=== PATIENT | male | born 1940 | race Caucasian/White ===

== ENCOUNTER 2019-09-02 11:00 | Inpatient (IN) | payer OTHER, SELFPAY ==
[2019-09-02] VITALS (8 sets, daily range): BP systolic 111–139; BP diastolic 55–72; PULSE 67–80; RESP 16–20; TEMP 36.6–36.8; O2SAT 94–99; BMI 39.3
--- NOTE | ~2019-09-02 | XR_ITS ---
XR chest 2V DATE: 09/02/2019 11:51 INDICATION: Hiccups for 6 days. Weakness. TECHNIQUE: AP and lateral views COMPARISON: 10/21/2016 PA and lateral chest FINDINGS: Status post sternotomy. Heart size is borderline. Aortic calcification. No hilar or mediast inal enlargement is evident. No pulmonary infiltrate or consolidation, pleural effusion or pulmonary vascular congestion or pneumo thorax is detected. There is distention scoliosis and degenerative spurring of the thoracic spine. Osteoarthritis is note d at the left glenohumeral joint. IMPRESSION: No active cardiopulmonary disease Aortic atherosclerosis Reviewed, dictated and finalized at location A.
--- NOTE | 2019-09-02 11:18 | ECG_ITS ---
Measurements Intervals [place] Rate: 69 P: CO: 0 QRS: 75 QRSD: 154 T: 27 QT: 470 QTc: 505 Interpretive Statements ATRIAL FIBRILLATION RIGHT BUNDLE BRANCH BLOCK BASELINE ARTIFACT- I, II, III, AVR, AVL, AVF, V4-V5 Electronically Signed On 09-02-2019 11:55:25 CDT by Pieter Slater D.O.
[2019-09-02 11:49] LABS: Basophils Absolute Auto 0.1 K/mm3 (0.0-0.1); Basophils Percent Auto 0.6 % (0.2-1.2); Eosinophils Absolute Auto 0.3 K/mm3 (0-0.3); Hematocrit 34.9 % (42.0-52.0); Hemoglobin 12.3 g/dL (14.0-18.0); Immature Granulocyte Absolute 0.12 K/mm3 (0.00-0.031); Lymphocytes Absolute Auto 1.05 K/mm3 (0.9-3.2); Lymphocytes Percent Auto 8.4 % (18.3-44.2); Mean Corpuscular HGB Conc 35.2 g/dl (32-36); Mean Corpuscular Hemoglobin 30.8 pg (26-34); Mean Corpuscular Volume 87.3 fl (80-100); Mean Platelet Volume 11.2 fl (7.4-10.4); Monocytes Absolute Auto 1.5 K/mm3 (0.1-0.6); Monocytes Percent Auto 11.8 % (2.6-8.5); Neutrophils Absolute Auto 9.6 K/mm3 (1.3-6.7); Neutrophils Percent Auto 76.2 % (45.5-73.1); Platelet Count Result 258 k/mm3 (150-375); Red Cell Distribution Width 12.5 % (11.5-14.5); White Blood Count 12.5 K/mm3 (4.5-10.0)
[2019-09-02 12:03] LABS: Blood Urea Nitrogen 32 mg/dL (9-20); Calcium 7.9 mg/dL (8.4-10.2); Carbon Dioxide 26 mmol/L (22-30); Chloride 92 mmol/L (98-107); Estimated CRCL calculation 33 ml/min; Estimated Glomerular Filt Rate 31; Glucose 198 mg/dL (75-110); Potassium 2.7 mmol/L (3.4-5.0); Sodium 128 mmol/L (137-145)
[2019-09-02] MEDS: POTASSIUM CHLORIDE 20 MEQ PACKET (FOR LIQUID) 40 MEQ PO (12:18)
[2019-09-02] MEDS: SODIUM CHLORIDE 0.9% IV 1,000 ML 999 ML IV CONT (12:19)
--- NOTE | 2019-09-02 12:45 | ED.SOB ---
HPI - SOB/Dyspnea General Chief Complaint: Shortness of Breath/Dyspnea Stated Complaint: WEAKNESS,SOB Time Seen by Provider: 09/02/19 11:59 Source: patient and family Mode of arrival: ambulatory Limitations: no limitations History of Present Illness HPI Narrative: This is a 78 year old male that presents to the ER for generalized weakness x 1 week. Reports over the last week has not been able to get around like he usually does. Reports some dyspnea on exertion. Also reports he has been having trouble with hiccups for the last week. Denies fever, chest pain, abdominal pain, nausea, vomiting, dysuria or hematuria. Related Data Home Medications Medication Instructions Recorded Confirmed cholecalciferol (vitamin D3) 50 2,000 unit PO DAILY 02/25/19 mcg (2,000 unit) tablet apixaban [Eliquis] 5 mg PO BID 09/02/19 simvastatin 40 mg PO HS 09/02/19 Allergies Allergy/AdvReac Type Severity Reaction Status Date / Time aspartame Allergy Severe SEIZURE Verified 09/02/19 11:08 Review of Systems Review of Systems: Narrative: CONSTITUTIONAL: Denies fever CARDIOVASCULAR: Denies chest pain, or edema. RESPIRATORY: Reports dyspnea. Denies cough GASTROINTESTINAL: Denies abdominal pain, nausea, vomiting GENITOURINARY: Denies dysuria or hematuria. NEUROLOGIC: Reports weakness. All systems reviewed & are unremarkable except as noted in HPI and below [facility] Social History Social History Smoking status: Former smoker Smoking end date: 04/17/85 Alcohol intake: current Exam Narrative: Exam Narrative: GENERAL: Elderly, obese, and in no acute distress. HEAD: Normocephalic, atraumatic. EYES: EOMI. ENT: Nares clear, no rhinorrhea or epistaxis. Mucous membranes moist. Oropharynx without tonsillar hypertrophy exudate or other lesions. Bilateral TMs pearly rodriguez non-bulging NECK: Supple. No adenopathy or masses. CHEST: Clear to auscultation. No respiratory distress. No wheezes rales or rhonchi HEART: Regular rate and rhythm. No murmur heard. Normal peripheral pulses. ABDOMEN: Soft, nontender, nondistended, normal active bowel sounds. EXTREMITIES: Normal range of motion. No edema. SKIN: Warm, dry, no rash. NEURO: No focal deficits. Alert and oriented x3. PSYCH: Normal mood and affect Course Consultations Consultation #1: Spoke with Dr. Reeves about patient and workup who accepts admission Date: 09/02/19 Time: 14:32 Vital Signs Vital signs: Vital Signs Temperature 98.0 F 09/02/19 11:01 Pulse Rate 80 09/02/19 11:01 Respiratory Rate 20 09/02/19 11:01 Blood Pressure 111/65 09/02/19 11:01 Pulse Oximetry 98 09/02/19 11:01 Temperature 98.0 F 09/02/19 11:01 Pulse Rate 69 09/02/19 11:13 Respiratory Rate 20 09/02/19 11:01 Blood Pressure 111/65 09/02/19 11:01 Pulse Oximetry 98 09/02/19 11:01 MDM - SOB/Dyspnea MDM Narrative Medical decision making narrative: Patient presents the emergency department for generalized weakness x1 week. He is afebrile and nontoxic-appearing. Vitals are stable. CBC with mild leukocytosis to 12.5. Also with mild normocytic anemia with hemoglobin of 12.3. Metabolic panel with hyponatremia and hypokalemia. Patient given a dose of potassium in the ED. Also shows evidence of probable acute kidney injury with creatinine of 2.1 and BUN of 32. Lactic acid is elevated to 2.5. Chest x-ray is without acute findings. Patient given IV fluids in the ED for dehydration. Patient will be admitted for further treatment of electrolyte imbalance and DERRICK. Spoke with hospitalist outpatient work-up accepts admission Lab Data Attestation: I reviewed the patient's lab results. Result diagrams: 09/02/19 11:42 09/02/19 11:42 Labs: Lab Results 09/02/19 09/02/19 09/02/19 Range/Units 11:41 11:41 11:41 WBC (4.5-10.0) K/mm3 RBC (4.6-6.20) M/mm3 Hgb (14.0-18.0) g/dL Hct (42.0-52.0) %
[2019-09-02 13:15] LABS: Lactic Acid Reflex 2.5 mmol/L (0.7-2.1)
[2019-09-02 13:30] LABS: Alanine Aminotransferase 46 U/L (4-50); Albumin Level 3.5 g/dL (3.5-5.1); Alkaline Phosphatase 242 U/L (38-126); Aspartate Amino Transferase 36 U/L (17-59); Bilirubin,Total 3.6 mg/dL (0.2-1.3)
[2019-09-02 13:37] LABS: NT Pro B Type Natriuretic Pept 2390 PG/ML (5-100)
--- NOTE | 2019-09-02 13:41 | PC.NURSE ---
Called lab to add on direct bili and indirect bili.
[2019-09-02 13:56] LABS: Bilirubin Indirect 2.5 mg/dL (0-1.1)
[2019-09-02 14:03] LABS: Thyroid Stimulating Hormone Reflex 0.873 uIU/mL (0.465-4.68)
[2019-09-02 14:54] LABS: Lipase 550 U/L (23-300)
[2019-09-02 14:58] LABS: Add Urine Microscopic? YES; Amorphous Sediment Urine Few; Appearance Urine Clear (Clear); Bacteria Urine Trace /hpf; Bilirubin Urine Negative (Negative); Blood Urine 2+ (Negative); Color Urine Yellow (Yellow); Glucose Urine UA 1+ mg/dL (Negative); Hyaline Casts Urine 20-29 /lpf; Ketones Urine Negative (Negative); Leukocyte Esterase Ur Negative LEU/UL (Negative); Mucus Urine Rare /lpf; Nitrate Urine Negative (Negative); Protein Urine 2+ mg/dL (Negative); RBC Urine 0-2 /hpf (0-2); Specific Grav Ur 1.015 (1.001-1.035); Squamous Epithelial Cell Urine Few /hpf (Few); Urobilinogen Urine Negative mg/dL (<2.0)
[2019-09-02 16:02] LABS: Reflex Lactic Acid Yes or No Add Lactic
--- NOTE | 2019-09-02 16:49 | ADMGEN ---
This patient, Jer Parikh, was admitted to [facility] Surg Room 323-01. Patient/family oriented to hospital policies and general routines including ID bracelet, bed and alarms, visiting hours, pain management, procedures, bathroom and other care routines, personal items, smoking policy, room service/diet, and visiting hours. Valuables list has been completed. Information on how to activate the Rapid Response Team has been discussed. Patient/Family are encouraged to report perceived risks to care and to ask questions if they do not understand what they are told or what they should do.
[2019-09-02 17:29] LABS: Lactic Acid 1.4 mmol/L (0.7-2.1)
[2019-09-02] MEDS: SODIUM CHLORIDE 0.9% IV 1,000 ML 125 ML IV CONT (17:38)
--- NOTE | 2019-09-02 19:15 | PM.IMHP ---
H&P: HPI History of Present Illness Chief complaint: Generalized weakness. Narrative: Mr. Parikh is a 78-year-old male with coronary artery disease status post three-vessel CABG in 2011, hypertension, dyslipidemia, paroxysmal atrial fibrillation, hypothyroidism, and chronic hyponatremia who presented to the emergency department earlier today for evaluation of generalized weakness. For the past 1 weeks time, he has just not been feeling like himself. He has had a poor appetite since an incident last Monday in which he had difficulty swallowing a piece of toast. Later on that day he developed nausea and dry heaves, and eventually had an episode of emesis to consist of digested food. He has not had dysphagia since that time and specifically denies pill dysphagia and trouble swelling breads or meats since then. Unfortunately, he continues to have a poor appetite and tells me he is just not hungry. He denies any further nausea, however. Additionally, he reports having hiccups most of the day for the last 6 days, which is very irritating to him. He believes that he is dehydrated due to poor oral intake, and he has been been feeling weak and a bit lightheaded. He also notes that his urine seems dark, but goes on to say that is not always unusual for him. Occasionally he has a decreased urine stream, but he denies significant symptoms to suggest BPH. He has not noticed a decrease in urine output. As an aside, the patient mentions dyspnea on exertion over the past 4 months time and tells me that his children have been encouraging him to mention that to the doctor. He has not had fever, chills, or sweats. He denies headache. No recent cold or flu symptoms. No cough. He denies orthopnea and edema. He has not had exertional chest pain or pleuritic pain. He denies change in weight. No anosmia or dysgeusia. No no diarrhea, in fact he has not had a bowel movement for 2 days. He denies dysuria. No history of malignancy. He denies jaundice and pruritus. Weight has remained stable. Review of Systems Review of Systems: Narrative: Twelve systems were reviewed with pertinent positives and negatives as per HPI. Except as documented, all other systems were reviewed and are negative. [facility] Past Medical History Medical History (Updated 09/02/19 @ 22:51 by Shelbi Ngo PA-C) Chronic hyponatremia Colon polyps Coronary artery disease With history of RI. Status post three-vessel CABG in 2011. Daily consumption of alcohol Dyslipidemia Essential hypertension Hyperbilirubinemia Hypothyroidism Left carotid artery occlusion Paroxysmal atrial fibrillation Status post cardioversion in October 2016. 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 Surgical History Surgical History (Updated 09/02/19 @ 17:09 by Shelbi Ngo PA-C) History of coronary artery bypass graft x 3 (~2011) History of inguinal hernia repair History of nasal septoplasty History of umbilical hernia repair Family History Family History Father Carcinoma of colon Acute myocardial infarction Late 30s. Mother Cerebrovascular accident Social History Social History (Updated 09/02/19 @ 22:45 by Shelbi Ngo PA-C) Social History: The patient is and lives in his own apartment in [place] with his cat. 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 He is a former smoker, and smoked as many as 3 to 4 packs of cigarettes per day for several years, and thereafter smoked 1 to 2 packs of cigarettes a day for 20+ years before quitting in 1985. He enjoys going to the [employer], typically 6 times per week, in which he typically will drink 3 beers. He has not been to the [employer] for the past month due to [facility] in place orders. He has no history of alcohol withdrawal signs or symptoms. Denies illicit drug use. He designates his brother Jf and his son Diego as his surrogate
[2019-09-02 22:13] LABS: Blood Urea Nitrogen 30 mg/dL (9-20); Calcium 7.7 mg/dL (8.4-10.2); Carbon Dioxide 27 mmol/L (22-30); Chloride 94 mmol/L (98-107); Estimated CRCL calculation 40 ml/min; Estimated Glomerular Filt Rate 39; Glucose 188 mg/dL (75-110); Potassium 2.9 mmol/L (3.4-5.0); Sodium 128 mmol/L (137-145)
[2019-09-02] MEDS: APIXABAN 5 MG TABLET PO (23:31)
[2019-09-02] MEDS: SIMVASTATIN 20 MG TABLET 40 MG PO (23:31)
[2019-09-02] MEDS: METOPROLOL TARTRATE 50 MG TAB 100 MG PO (23:31)
[2019-09-02 23:32] LABS: Creatine Kinase 118 U/L (55-170); Magnesium 1.9 mg/dL (1.6-2.3)
[2019-09-03 00:23] LABS: Thyroid Stimulating Hormone Reflex 0.742 uIU/mL (0.465-4.68)
[2019-09-03] MEDS: SODIUM CHLORIDE 0.9% IV 1,000 ML 125 ML IV CONT ×3 (02:02→17:33)
[2019-09-03] MEDS: LEVOTHYROXINE SODIUM 112 MCG TABLET PO (05:40)
[2019-09-03 06:00] VITALS: BP 110/48; PULSE 71; RESP 16; TEMP 36.7; O2SAT 96
[2019-09-03 06:26] LABS: INR 1.6; Prothrombin Time 18.9 Seconds (11.1-14.7)
[2019-09-03 06:27] LABS: Basophils Absolute Auto 0.1 K/mm3 (0.0-0.1); Basophils Percent Auto 0.5 % (0.2-1.2); Eosinophils Absolute Auto 0.3 K/mm3 (0-0.3); Eosinophils Percent Auto 2.2 % (0-4.4); Hematocrit 34.6 % (42.0-52.0); Hemoglobin 12.1 g/dL (14.0-18.0); Immature Granulocyte Percent A 0.8 % (0-0.5); Lymphocytes Absolute Auto 1.06 K/mm3 (0.9-3.2); Lymphocytes Percent Auto 8.8 % (18.3-44.2); Mean Corpuscular Hemoglobin 30.6 pg (26-34); Mean Corpuscular Volume 87.6 fl (80-100); Mean Platelet Volume 11.2 fl (7.4-10.4); Monocytes Absolute Auto 1.2 K/mm3 (0.1-0.6); Neutrophils Absolute Auto 9.4 K/mm3 (1.3-6.7); Neutrophils Percent Auto 77.7 % (45.5-73.1); Partial Thromboplastin Time 42.5 SECONDS (22.3-36.8); Platelet Count Result 253 k/mm3 (150-375); Red Blood Count 3.95 M/mm3 (4.6-6.20); Red Cell Distribution Width 12.3 % (11.5-14.5); White Blood Count 12.1 K/mm3 (4.5-10.0)
[2019-09-03 06:33] LABS: Alanine Aminotransferase 37 U/L (4-50); Albumin Level 3.2 g/dL (3.5-5.1); Alkaline Phosphatase 198 U/L (38-126); Aspartate Amino Transferase 32 U/L (17-59); Bilirubin,Total 2.7 mg/dL (0.2-1.3); Blood Urea Nitrogen 25 mg/dL (9-20); Calcium 7.6 mg/dL (8.4-10.2); Carbon Dioxide 25 mmol/L (22-30); Chloride 98 mmol/L (98-107); Estimated CRCL calculation 45 ml/min; Estimated Glomerular Filt Rate 45; Glucose 186 mg/dL (75-110); Lipase 560 U/L (23-300); Magnesium 1.8 mg/dL (1.6-2.3); Phosphorus 2.2 mg/dL (2.5-4.5); Potassium 3.4 mmol/L (3.4-5.0); Sodium 129 mmol/L (137-145)
[2019-09-03] MEDS: POTASSIUM CHLORIDE 20 MEQ TABLET 40 MEQ PO (08:18)
[2019-09-03 08:20] VITALS: PULSE 72
[2019-09-03] MEDS: METOPROLOL TARTRATE 50 MG TAB 100 MG PO ×2 (08:20→17:34)
[2019-09-03] MEDS: APIXABAN 5 MG TABLET PO ×2 (08:20→17:34)
[2019-09-03] MEDS: MUPIROCIN 2% OINT 22 GM TUBE 1 APPLIC TOPICAL ×2 (08:22→17:34)
[2019-09-03 08:28] LABS: Sodium Urine Random 112 meq/L
[2019-09-03] MEDS: PERFLUTREN LIPID MICROSPHERES 1.5 ML VIAL DILUTED TO 10 ML TOTAL VOLUME IV PUSH (10:24)
[2019-09-03] MEDS: CHOLECALCIFEROL 1,000 UNIT TABLET 2000 UNITS PO (12:24)
--- NOTE | 2019-09-03 13:09 | PM.IMPN ---
Progress Note: A&P Assessment and Plan (1) Acute kidney injury: Code(s): N17.9 - Acute kidney failure, unspecified Status: Acute Assessment and Plan: Likely due to dehydration given poor oral intake recently. He is also on losartan-hydrochlorothiazide, which will be held for now. Cr improved to 1.50 today Continue IVF rehydration at 100 mL/hr for now Monitor closely Resume losartan-HCTZ when appropriate (2) Acute hypokalemia: Code(s): E87.6 - Hypokalemia Status: Acute Assessment and Plan: K 3.4 today, improved, but still borderline-low. Potassium and magnesium will be replaced and monitored. As above, hydrochlorothiazide on hold. (3) Chronic hyponatremia: Code(s): E87.1 - Hypo-osmolality and hyponatremia Status: Acute Assessment and Plan: On review of previous labs, he has had longstanding hyponatremia. Na 129 today; stable. May be related to his diet; states he has not had alcohol for almost a month as the [employer] has been closed. FENa 1.7% suggesting intrinsic such as ATN. Improvement with fluids and avoiding nephrotoxic agents Will continue IV fluid rehydration and monitor sodium closely. (4) Hyperbilirubinemia: Code(s): E80.6 - Other disorders of bilirubin metabolism Status: Acute Assessment and Plan: This is been documented in the past, and is mostly indirect bilirubin. Likely Gilbert, however his alkaline phosphatase and lipase are a bit elevated as well. Given poor appetite as well, if no improvement, will consider abdominal imaging Will continue to hydrate to see if we can improve his creatinine clearance. (5) Paroxysmal atrial fibrillation: Code(s): I48.0 - Paroxysmal atrial fibrillation Status: Acute Assessment and Plan: Patient is in a sinus rhythm at time of evaluation. Echo noted a. fib Continue metoprolol and apixaban. (6) Hypothyroidism: Code(s): E03.9 - Hypothyroidism, unspecified Status: Acute Assessment and Plan: TSH WNL Continue levothyroxine (7) Elevated lactic acid level: Code(s): R79.89 - Other specified abnormal findings of blood chemistry Status: Acute Assessment and Plan: Probably due to lab draw technique, but perhaps hypovolemia as well. He gives no history to suggest underlying infection, other than possible UTI with dysuria and sepsis is unlikely. Lactic acid level is normal on repeat lab draw. Consider repeat UA if dysuria continues and leukocytosis does not improve (8) Dyspnea on exertion: Code(s): R06.00 - Dyspnea, unspecified Status: Acute Assessment and Plan: Echo showed moderate aortic stenosis, although possible underestimation as aortic valve not well visualized; likely etiology of TO and murmur. This is been occurring over the past 4 months time as well Explained to the patient that he will need to follow up with his established Chief Of Production at [facility] after discharge for further management Subjective Date/time seen: 09/03/19 13:09 Interval history: Patient is a 78 yo M with history of chronic hyponatremia, CAD, HTN, and hyperbilirubinemia who is here for DERRICK, acute hypokalemia, and generalized weakness. Patient states he overall feels better today. His appetite has improved. He had a large BM this morning; non-bloody, non-melenic. He occasionally has some burning with his urination. He confirms TO for the past 4 months. He continues to have hiccups, but does not he thought they may have improved overnight, but hav
[2019-09-03 14:00] VITALS: BP 111/49; PULSE 70; RESP 18; TEMP 36.4; O2SAT 99
[2019-09-03 17:34] VITALS: PULSE 68
[2019-09-03] MEDS: SIMVASTATIN 20 MG TABLET 40 MG PO (20:00)
[2019-09-03 22:00] VITALS: BP 129/56; PULSE 68; RESP 20; TEMP 36.4; O2SAT 100
--- NOTE | 2019-09-03 22:52 | ECHO_ITS ---
Patient Info Name: Jer Parikh Age: 78 years : 1940 Gender: Male Ht: 67 in Wt: 251 lbs BSA: 2.37 m2 HR: 70 bpm BP: 115 / 60 mmHg Heart Rhythm: Atrial Fibrillation Technical Quality: Fair Exam Date: 09/03/2019 9:27 AM Exam Location: [facility] Card Pulmonary Patient Status: Inpatient Admit Date: 09/02/2019 Staff Ordering Physician: Shelbi Ngo PA-C Blower Insulator: Luis Carlos Bernard RDCS Attending Provider: Peter Babcock PA-C Referring Physician: Huber GIBBONS; Exam Type: CA echo dop color flow w con Study Info Indications R06.00 - Dyspnea, unspecified Complete two-dimensional, color flow and Doppler transthoracic echocardiogram is performed with contrast to opacify the left ventrical and to improve the deliniation of the left ventrical endocarial boarders. Contrast/Agitated Saline Contrast/Ag. Saline: Definity Amount: 1.00 ml Administered By: Ochoa James RN Existing IV Access: Yes History/Risk Factors Dyspnea on exertion; CAD s/p 3vCABG '12, HTN, Afib. Summary 1. Left ventricular chamber dimension is normal. 2. Definity contrast administered improved wall motion interpretation. 3. Left ventricular systolic function is normal, estimated at 60-65%. 4. The left ventricular diastolic function is abnormal. 5. E/e' 10 is mildly elevated. 6. Patient is in atrial fibrillation. 7. Left atrial chamber dimension is severely enlarged. 8. The aortic valve is not well visualized. 9. There is severe aortic valve sclerosis. 10. There is mild to moderate aortic valve regurgitation. 11. There is moderate aortic valve stenosis based on a peak velocity of 303.65 cm/s, mean gradient of 17 mmHg, and aortic valve area of 1.23 cm2. However, this could be an underestimation of valve severity. 12. The mitral valve has mildly calcified annulus. 13. There is mild mitral valve regurgitation. 14. There is mild to moderate tricuspid valve regurgitation. 15. Mild pulmonary hypertension, estimated pulmonary arterial systolic pressure is 48 mmHg. Left Ventricle Patient is in atrial fibrillation. E/e' 10 is mildly elevated. Definity contrast administered improved wall motion interpretation. Left ventricular chamber dimension is normal. Left ventricular systolic function is normal, estimated at 60-65%. The left ventricular diastolic function is abnormal. Right Ventricle Right ventricular chamber dimension is not well visualized. Left Atria Left atrial chamber dimension is severely enlarged. Right Atria Right atrial chamber dimension is not well visualized. Aortic Valve There is moderate aortic valve stenosis based on a peak velocity of 303.65 cm/s, mean gradient of 17 mmHg, and aortic valve area of 1.23 cm2. However, this could be an underestimation of valve severity. Cannot determine number of aortic valve leaflets. The aortic valve is not well visualized. There is severe aortic valve sclerosis. There is mild to moderate aortic valve regurgitation. Mitral Valve The mitral valve has mildly calcified annulus. There is no mitral valve stenosis. There is mild mitral valve regurgitation. Tricuspid Valve There is mild to moderate tricuspid valve regurgitation. Mild pulmonary hypertension, estimated pulmonary arterial systolic pressure is 48 mmHg. Pericardium/Pleural There is no pericardial effusion. Aorta The aortic root size at the sinus of Valsalva is normal. Left Ventricular Out
[2019-09-04] MEDS: SODIUM CHLORIDE 0.9% IV 1,000 ML 100 ML IV CONT (03:17)
[2019-09-04] MEDS: LEVOTHYROXINE SODIUM 112 MCG TABLET PO (05:07)
[2019-09-04 06:00] VITALS: BP 135/57; PULSE 72; RESP 20; TEMP 36.4; O2SAT 98
[2019-09-04 06:07] LABS: Basophils Absolute Auto 0.1 K/mm3 (0.0-0.1); Basophils Percent Auto 0.6 % (0.2-1.2); Eosinophils Absolute Auto 0.5 K/mm3 (0-0.3); Eosinophils Percent Auto 6.3 % (0-4.4); Hematocrit 33.2 % (42.0-52.0); Hemoglobin 11.4 g/dL (14.0-18.0); Immature Granulocyte Absolute 0.07 K/mm3 (0.00-0.031); Immature Granulocyte Percent A 0.8 % (0-0.5); Lymphocytes Percent Auto 14.2 % (18.3-44.2); Mean Corpuscular HGB Conc 34.3 g/dl (32-36); Mean Corpuscular Hemoglobin 30.4 pg (26-34); Mean Corpuscular Volume 88.5 fl (80-100); Monocytes Percent Auto 11.3 % (2.6-8.5); Neutrophils Absolute Auto 5.7 K/mm3 (1.3-6.7); Neutrophils Percent Auto 66.8 % (45.5-73.1); Platelet Count Result 270 k/mm3 (150-375); Red Blood Count 3.75 M/mm3 (4.6-6.20); Red Cell Distribution Width 12.3 % (11.5-14.5); White Blood Count 8.5 K/mm3 (4.5-10.0)
[2019-09-04 06:25] LABS: Alanine Aminotransferase 29 U/L (4-50); Albumin Level 3.1 g/dL (3.5-5.1); Alkaline Phosphatase 139 U/L (38-126); Aspartate Amino Transferase 42 U/L (17-59); Bilirubin,Total 2.3 mg/dL (0.2-1.3); Blood Urea Nitrogen 19 mg/dL (9-20); Carbon Dioxide 27 mmol/L (22-30); Chloride 97 mmol/L (98-107); Estimated CRCL calculation 58 ml/min; Estimated Glomerular Filt Rate 59; Glucose 152 mg/dL (75-110); Magnesium 1.7 mg/dL (1.6-2.3); Potassium 4.1 mmol/L (3.4-5.0); Sodium 128 mmol/L (137-145)
[2019-09-04 08:11] VITALS: BP 142/50; PULSE 71; RESP 18; TEMP 36.4; O2SAT 99
[2019-09-04] MEDS: APIXABAN 5 MG TABLET PO ×2 (08:15→16:28)
[2019-09-04 08:16] VITALS: PULSE 71
[2019-09-04] MEDS: METOPROLOL TARTRATE 50 MG TAB 100 MG PO ×2 (08:16→16:29)
[2019-09-04] MEDS: MUPIROCIN 2% OINT 22 GM TUBE 1 APPLIC TOPICAL ×2 (08:16→16:29)
[2019-09-04] MEDS: CHOLECALCIFEROL 1,000 UNIT TABLET 2000 UNITS PO (12:11)
--- NOTE | 2019-09-04 12:20 | PM.DS ---
DS: Admitting Diagnosis Admitting Diagnosis Admitting Diagnosis: Acute kidney failure, unspecified DS: Discharge Diagnosis Discharge Diagnosis (1) Acute kidney injury: Code(s): N17.9 - Acute kidney failure, unspecified Status: Acute Assessment and Plan: Likely due to dehydration given poor oral intake recently. He is also on losartan-hydrochlorothiazide, which will be held for now. Cr improved to 1.20 today. His appetite is improved and has been increasing his PO intake; tolerating his self-induced FLD well. Wishes to advance his diet as tolerated at home IVF during stay Resume losartan-HCTZ likely in 1-2 days after discharge Repeat CMP on 09/08 (2) Acute hypokalemia: Code(s): E87.6 - Hypokalemia Status: Acute Assessment and Plan: K 4.1 today, improved, but still borderline-low. CMP on 09/08 As above, hydrochlorothiazide on hold and will likely resume in 1-2 days (3) Chronic hyponatremia: Code(s): E87.1 - Hypo-osmolality and hyponatremia Status: Acute Assessment and Plan: On review of previous labs, he has had longstanding hyponatremia. Na 128 today; stable. May be related to his diet; states he has not had alcohol for almost a month as the [employer] has been closed. FENa 1.7% suggesting intrinsic such as ATN. Improvement with fluids and avoiding nephrotoxic agents IV fluid rehydration during stay CMP on 09/08 (4) Hyperbilirubinemia: Code(s): E80.6 - Other disorders of bilirubin metabolism Status: Acute Assessment and Plan: This is been documented in the past, and is mostly indirect bilirubin. Likely Gilbert, however his alkaline phosphatase and lipase are a bit elevated as well. Bili decreased to 2.3 today. Alk phos also improving to 139 CMP on 09/08 F/u with PCP; discussed with patient to discuss with PCP if further imaging as outpatient is warranted after CMP next week (5) Paroxysmal atrial fibrillation: Code(s): I48.0 - Paroxysmal atrial fibrillation Status: Acute Assessment and Plan: Patient is in a sinus rhythm at time of evaluation. Echo noted a. fib Continue metoprolol and apixaban. (6) Hypothyroidism: Code(s): E03.9 - Hypothyroidism, unspecified Status: Acute Assessment and Plan: TSH WNL Continue levothyroxine (7) Elevated lactic acid level: Code(s): R79.89 - Other specified abnormal findings of blood chemistry Status: Acute Assessment and Plan: Probably due to lab draw technique, but perhaps hypovolemia as well. He gives no history to suggest underlying infection, other than possible UTI with dysuria and sepsis is unlikely. UC negative. Lactic acid level is normal on repeat lab draw. F/u PCP (8) Dyspnea on exertion: Code(s): R06.00 - Dyspnea, unspecified Status: Acute Assessment and Plan: Echo showed moderate aortic stenosis, although possible underestimation as aortic valve not well visualized; likely etiology of TO and murmur. 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 No N/V, abdominal pain; having BMs Will trial patient on daily protonix Recommended follow up with PCP in 1-2 weeks if further imaging is warranted. (10) Aortic stenosis:
[2019-09-04 14:00] VITALS: BP 140/50; PULSE 68; RESP 18; TEMP 37.1; O2SAT 99
[2019-09-04 16:29] VITALS: PULSE 90
[2019-09-05 06:02] LABS: Osmolality, Urine 510 mOsm/kg (50-1200)
== END 2019-09-04 17:50 | disposition home or self-care (01) | DRG 683 ==
LOC: ANHED 14:39 → ANH3MEDSUR 15:11
PROVIDERS: Physician Assistant; Admitting Provider Internal Medicine; Emergency Provider Emergency Medicine; Visit Provider Family Medicine
DX: N17.9 Acute kidney failure, unspecified (principal); E87.1 Hypo-osmolality and hyponatremia; E87.6 Hypokalemia; I25.10 Atherosclerotic heart disease of native coronary artery without angina pectoris; I48.0 Paroxysmal atrial fibrillation; E03.9 Hypothyroidism, unspecified; Z87.891 Personal history of nicotine dependence; I10 Essential (primary) hypertension; I35.0 Nonrheumatic aortic (valve) stenosis; R06.6 Hiccough; Z95.1 Presence of aortocoronary bypass graft
CPT/HCPCS: 36415; 71046; 80048; 80053; 80076; 81001; 82248; 82533; 82550; 82570; 83605; 83690; 83735; 83880; 83930; 83935; 84100; 84300; 84443; 85025; 85610; 85730; 87086; 93005; 96360; 96361; 97161; 97165; 99285; A9270; C8929; G0378; J3480; J7030; Q9957

== ENCOUNTER 2019-09-24 10:19 | Outpatient (CLI) | payer OTHER, SELFPAY ==
--- NOTE | 2019-09-26 13:41 | WPDPFTINT ---
PFT Interpretation PFT Interpretation: This PFT met all criteria for ATS standards and reproducibility FEV/FVC 70% of predicted FEV1 98% of predicted FVC 91% of predicted TLC 99% of predicted RV 47% RV/TLC 39% DLCO 43% when adjusted for alveolar volume but not adjusted for hemoglobin Flow volume loops showed some expiratory coving Impression: Mild airflow obstruction with moderately reduced diffusion capacity that is out of proportion to the amount of air flow obstruction present. This may be due to extensive emphysema, concomittant anemia, ILD or pulmonary hypertension. Clinical correlation is advised.
--- NOTE | 2019-09-30 12:02 | WPDPFTINT ---
PFT Interpretation PFT Interpretation: DOS: 09/24/2019 REQUESTING: Olimpia Lawrence NP REASON FOR TESTING: Dyspnea PULMONARY FUNCTION TESTS Resutls are reproducible. Spirometry: FEV1 98%, FVC 91% and FEV1% 70%, all normal. No bronchodilator was given. Lung volumes: TLC 99%, RV 90%, normal. Increase in airway resistance 191%. Diffusion: DLCO moderately reduced at 43% predicted. Flow volume loop: Normal. IMPRESSION: Normal spirometry and lung volumes with a moderate decrease in diffusion. Isolated decrease in diffusion can be seen in early ILD, chronic thromboembolic disease, collagen vascular disease with pulmonary vascular involvement, anemia, smoking adn other conditions. Sharmila Kahn MD
== END 2019-09-24 10:20 | disposition home or self-care (01) ==
PROVIDERS: PCP Family Medicine; Visit Provider Nurse Practitioner Family
DX: R06.00 Dyspnea, unspecified (principal); R94.2 Abnormal results of pulmonary function studies
CPT/HCPCS: 94375; 94726; 94729

== ENCOUNTER 2019-11-28 19:42 | Inpatient (IN) | payer OTHER, SELFPAY ==
--- NOTE | ~2019-11-28 | XR_ITS ---
EXAMINATION: XR chest 1V portable EXAM DATE: 11/28/2019 20:48 INDICATION: Shortness of breath. TECHNIQUE: Portable AP frontal chest x-ray was obtained. Comparison is made to prior examination from 09/02/2019. FINDINGS: Sternotomy wires are present without findings to suggest sternal dehiscence. The lungs are clear. There are no pleural effusions. Cardiac silhouette is prominent but magnified on this AP [place]. There is no pneumothorax suspected. The bones and soft tissues are unremarkable. There i s no significant interval change. IMPRESSION: No acute cardiopulmonary findings. Reviewed, dictated and finalized at location G.
--- NOTE | ~2019-11-28 | US_ITS ---
EXAMINATION: US right upper quadrant DATE: 11/30/2019 07:56 INDICATION: Abnormal liver function tests. TECHNIQUE: Multiple grayscale and Doppler ultrasound images of the abdomen were obtained. COMPARISON: None FINDINGS: The pancreas is obscured. The liver is normal without focal lesion. No liver surface nodula rity. There is normal flow in main portal vein. The gallbladder is distended and contains a gallstone . No gallbladder wall thickening or sonographic Messer sign. The common duct is normal and measures 7 mm. IMPRESSION: 1. Cholelithiasis. Gallbladder distention may be secondary to fasting. Reviewed, dictated and finalized at location A.
--- NOTE | ~2019-11-28 | US_ITS ---
EXAMINATION: US renal BI DATE: 11/29/2019 10:01 INDICATION: Renal failure TECHNIQUE: Multiple ultrasound grayscale images of the kidneys were obtained. COMPARISON: None. FINDINGS: The right kidney measures 10.3 x 5.8 x 6.2 cm. The left kidney measures 10.8 x 5.9 x 6.6 cm. The kidn eys demonstrate normal echogenicity. There is no hydronephrosis in either kidney. No stones identifi ed. The bladder is normal. Instantly noted is a shadowing 2 cm gallstone at the neck of the gallbladd er which measures up to 4.6 similar in diameter but without appreciable wall thickening to suggest ac [place] cholecystitis. IMPRESSION: 1. Normal kidneys without hydronephrosis. 2. Gallstone at the neck of the mildly dilated gallbladder but without wall thickening to more specif ically suggest acute cholecystitis. Correlate for Messer sign and if clinically indicated could consi emili either dedicated right upper quadrant ultrasound and/or HIDA scan for further evaluation. Reviewed, dictated and finalized at location A. IMPRESSION: 1. Normal kidneys without hydronephrosis. 2. Gallstone at the neck of the mildly dilated gallbladder but without wall thi ckening to more specifically suggest acute cholecystitis. Correlate for Messer sign and if clinically indicated could consider either dedicated right upper qu adrant ultrasound and/or HIDA scan for further evaluation.
[2019-11-28 19:49] VITALS: BP 112/58; PULSE 75; RESP 16; TEMP 36.4; O2SAT 97
[2019-11-28 20:12] LABS: Basophils Absolute Auto 0.1 K/mm3 (0.0-0.1); Basophils Percent Auto 1.1 % (0.2-1.2); Eosinophils Absolute Auto 0.3 K/mm3 (0-0.3); Hematocrit 40.4 % (42.0-52.0); Hemoglobin 14.2 g/dL (14.0-18.0); Immature Granulocyte Absolute 0.04 K/mm3 (0.00-0.031); Immature Granulocyte Percent A 0.5 % (0-0.5); Lymphocytes Absolute Auto 1.85 K/mm3 (0.9-3.2); Lymphocytes Percent Auto 21.8 % (18.3-44.2); Mean Corpuscular HGB Conc 35.1 g/dl (32-36); Mean Corpuscular Hemoglobin 30.9 pg (26-34); Mean Corpuscular Volume 87.8 fl (80-100); Mean Platelet Volume 11.1 fl (7.4-10.4); Monocytes Absolute Auto 0.9 K/mm3 (0.1-0.6); Monocytes Percent Auto 10.8 % (2.6-8.5); Neutrophils Absolute Auto 5.2 K/mm3 (1.3-6.7); Neutrophils Percent Auto 61.8 % (45.5-73.1); Platelet Count Result 321 k/mm3 (150-375); Red Cell Distribution Width 12.9 % (11.5-14.5); White Blood Count 8.5 K/mm3 (4.5-10.0)
--- NOTE | 2019-11-28 20:19 | ED.RECABL ---
HPI - Recheck/Abnormal Lab/Rx General Chief Complaint: Recheck/Abnormal Lab/Rx Stated Complaint: abnormal lab work Time Seen by Provider: 11/28/19 20:06 Source: patient and family Mode of arrival: ambulatory Limitations: no limitations History of Present Illness HPI narrative: This patient is a 78 year old male with history of HTH, CAD s/p CABG 2011, DM who presents for evaluation for abnormal labs. Patient had a routine visit in the office 2 days ago with his primary care physician, and labs were drawn after his visit. He states he was called today and he was told his blood sugar was high and he also had abnormal kidney function . He was told he should come to ER. Patient has no acute complaints . He states he was told in September that he was a diabetic but he was only started on metformin yesterday. He denies abdominal pain, nausea, vomiting, chest pain, cough or fever. HE also denies lightheadedness or dizziness. He is being evaluated for chronic sob and he is scheduled to see a pulmonology December 18. He also has an appointment with an change management specialist 01/14. Patient does reports frequent urination and increase thirst. He denies pain or inability to urinate. complaint: abnormal lab Related Data Home Medications Medication Instructions Recorded Confirmed cholecalciferol (vitamin D3) 50 2,000 unit PO DAILY 02/25/19 11/26/19 mcg (2,000 unit) tablet Eliquis 5 mg PO BID 09/02/19 11/26/19 simvastatin 40 mg PO HS 09/02/19 11/26/19 melatonin 3 mg capsule PO 11/26/19 11/26/19 Allergies Allergy/AdvReac Type Severity Reaction Status Date / Time aspartame Allergy Severe SEIZURE Verified 11/28/19 19:51 Review of Systems Review of Systems: All systems reviewed & are unremarkable except as noted in HPI and below Constitutional: Constitutional: Denies chills, Denies fatigue and Denies fever(s) Cardiovascular: Cardiovascular: Denies chest pain Respiratory: Respiratory: Denies cough, Reports dyspnea and Denies wheezing Gastrointestinal: Gastrointestinal: Denies abdominal pain, Denies diarrhea, Denies nausea and Denies vomiting Musculoskeletal: Musculoskeletal: Denies muscle cramps Neurologic: Denies dizziness PMFSH Past Medical History Medical History Chronic hyponatremia Colon polyps COPD (chronic obstructive pulmonary disease) Coronary artery disease With history of [place]. Status post three-vessel CABG in 2011. Daily consumption of alcohol Dyslipidemia Essential hypertension Hyperbilirubinemia Hypothyroidism Insomnia Left carotid artery occlusion Paroxysmal atrial fibrillation Status post cardioversion in October 2016. 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 Type 2 diabetes mellitus without complications Surgical History Surgical History (Updated 09/02/19 @ 17:09 by Shelbi Ngo PA-C) History of coronary artery bypass graft x 3 (~2011) History of inguinal hernia repair History of nasal septoplasty History of umbilical hernia repair Social History Social History (Updated 09/19/19 @ 10:14 by Olimpia Lawrence NP) Social History: The patient is and lives in his own apartment in [place] with his cat. 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 He is a former smoker, and smoked as many as 3 to 4 packs of cigarettes per day for several years, and thereafter smoked 1 to 2 packs of cigarettes a day for 20+ years before quitting in 1985. He enjoys going to the [employer], typically 6 times per week, in which he typically will drink 3 beers. He had not been to the [employer] for the past month due to [facility] in place orders; this week (09/16/19) he has resumed going to the [employer], he typically has lunch there twice a week. He has no history of alcohol withdrawal signs or symptoms. Denies illicit drug use. He designates his brother Jf and his son Diego as his surrogate decision makers and he wis
[2019-11-28 20:24] VITALS: BP 113/68; PULSE 60
[2019-11-28 20:24] LABS: Alanine Aminotransferase 128 U/L (4-50); Albumin Level 4.2 g/dL (3.5-5.1); Alkaline Phosphatase 615 U/L (38-126); Anion Gap 13 mmol/L (8-16); Aspartate Amino Transferase 175 U/L (17-59); Bilirubin,Total 2.1 mg/dL (0.2-1.3); Blood Urea Nitrogen 38 mg/dL (9-20); Calcium 9.6 mg/dL (8.4-10.2); Carbon Dioxide 23 mmol/L (22-30); Chloride 90 mmol/L (98-107); Estimated CRCL calculation 30 ml/min; Estimated Glomerular Filt Rate 29; Glucose 406 mg/dL (75-110); Potassium 4.1 mmol/L (3.4-5.0); Sodium 126 mmol/L (137-145)
[2019-11-28 20:25] VITALS: BP 101/61; PULSE 65
[2019-11-28 20:27] VITALS: BP 115/88; PULSE 159
[2019-11-28] MEDS: SODIUM CHLORIDE 0.9% IV 500 ML 999 ML IV CONT (20:29)
--- NOTE | 2019-11-28 20:37 | ECG_ITS ---
Measurements Intervals Reading Rate: 59 P: TX: 0 QRS: 73 QRSD: 138 T: 131 QT: 449 QTc: 445 Interpretive Statements ATRIAL FIBRILLATION WITH SLOW VENTRICULAR RESPONSE IVCD, FEATURES OF BOTH RBBB, LBBB CANNOT RULE OUT SEPTAL INFARCT, AGE INDETERMINATE MINIMAL Q WAVES- INFERIOR LEADS BASELINE ARTIFACT- I, III, AVR, AVL, AVF, V2-V6 ABNORMAL ECG Electronically Signed On 11-29-2019 7:08:22 CDT by Pieter Slater D.O.
[2019-11-28 20:41] LABS: Add Urine Microscopic? YES; Appearance Urine Cloudy (Clear); Bacteria Urine Trace /hpf; Bilirubin Urine Negative (Negative); Blood Urine 1+ (Negative); Color Urine Yellow (Yellow); Glucose Urine UA 3+ mg/dL (Negative); Ketones Urine Negative (Negative); Leukocyte Esterase Ur Negative LEU/UL (Negative); Mucus Urine Rare /lpf; Nitrate Urine Negative (Negative); Protein Urine 2+ mg/dL (Negative); RBC Urine 0-2 /hpf (0-2); Squamous Epithelial Cell Urine Occasional /hpf (Few); Urobilinogen Urine Negative mg/dL (<2.0); WBC Urine 0-3 /hpf
[2019-11-28 20:47] LABS: Magnesium 1.9 mg/dL (1.6-2.3)
[2019-11-28 21:23] LABS: Ammonia < 9 umol/L (9-30)
[2019-11-28 21:31] LABS: INR 1.3; Prothrombin Time 16.2 Seconds (11.1-14.7)
[2019-11-28 21:32] LABS: Partial Thromboplastin Time 39.8 SECONDS (22.3-36.8)
[2019-11-28 22:45] VITALS: BP 113/68; PULSE 70; RESP 20; O2SAT 98
--- NOTE | 2019-11-28 22:54 | PM.IMHP ---
H&P: HPI History of Present Illness Date/Time: 11/28/19 22:54 Chief complaint: acute on chronic renal failure, hyponatremia, Narrative: Jer Parikh is a 78 year old male with known history of HTN, CAD s/p CABG x 3 in 2011, chronically anticoagulated on Eliquis with recently diagnosed diabetes in September 2019 and was just started on Metformin yesterday and referred to the hospital by his PCP for abnormal labs. The patient was found to have an abnormal renal function and hyperglycemia two days ago and today referred to the hospital for management of same. Tonight the patient has no complaints. Routine labs were obtained in the ER tonight and the patient again was found to have hyperglycemia, abnormal renal and liver function. He admits to drinking three drinks weekly and years ago he was drinking alcohol more frequently. He denies any recent exposure to contrast media. He also denies any NSAID use. He remarks that he feels that he has not had any change in urine output recently. The patient has an appointment with endocrinology in December 2019. Review of Systems Review of Systems: All systems reviewed & are unremarkable except as noted in HPI and below PMFSH Past Medical History Medical History Chronic hyponatremia Colon polyps COPD (chronic obstructive pulmonary disease) Coronary artery disease With history of [place]. Status post three-vessel CABG in 2011. Daily consumption of alcohol Dyslipidemia Essential hypertension Hyperbilirubinemia Hypothyroidism Insomnia Left carotid artery occlusion Paroxysmal atrial fibrillation Status post cardioversion in October 2016. 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 Type 2 diabetes mellitus without complications Surgical History Surgical History History of coronary artery bypass graft x 3 (~2011) History of inguinal hernia repair History of nasal septoplasty History of umbilical hernia repair Family History Family History Father Carcinoma of colon Acute myocardial infarction Late 30s. Mother Cerebrovascular accident Social History Social History Social History: The patient is and lives in his own apartment in [place] with his cat. 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 He is a former smoker, and smoked as many as 3 to 4 packs of cigarettes per day for several years, and thereafter smoked 1 to 2 packs of cigarettes a day for 20+ years before quitting in 1985. He enjoys going to the [employer], typically 6 times per week, in which he typically will drink 3 beers. He had not been to the [employer] for the past month due to [facility] in place orders; this week (09/16/19) he has resumed going to the [employer], he typically has lunch there twice a week. He has no history of alcohol withdrawal signs or symptoms. Denies illicit drug use. He designates his brother Jf and his son Diego as his surrogate decision makers and he wishes to be a full code. Smoking packs per day: 4 Smoking cigarettes per day: 80.0 Years smoked: 20 Smoking pack-years: 80.00 Smoking status: Former smoker Tobacco type: cigarettes Second hand tobacco smoke exposure: Yes Smoking end date: 04/17/85 Alcohol intake: current Drinks per week: 10 Substance use: never Other substance usage details: drinks at the [employer] 2-3d a weeks , 2-3 drinks each day Additional living arrangements comments: Son Diego lives in [place], calls every other day. Gender identity (if verbalized by the patient): Male Spiritual care concerns: No Meds Home Medications and Allergies Home Medications Medication Instructions Recorded Confirmed Type cholecalciferol (vitamin D3) 50 2,000 unit PO DAILY 02/25/19 11/29/19 History
[2019-11-28] MEDS: INSULIN HUMAN REGULAR (*BKC) 100 UNITS/ML 8 UNITS SUB-Q (23:04)
[2019-11-28] MEDS: SODIUM CHLORIDE 0.9% IV 1,000 ML 100 ML IV CONT (23:05)
[2019-11-28] MEDS: ONDANSETRON INJ 4 MG/2 ML VIAL IV PUSH (23:05)
[2019-11-28 23:40] VITALS: BP 119/58; PULSE 82; RESP 20; TEMP 36.7; O2SAT 98
[2019-11-29] MEDS: INSULIN ASPART (*BKC) 100 UNITS/ML SUB-Q ×3 (00:16→16:56)
[2019-11-29 00:18] VITALS: BP 145/57; PULSE 71; RESP 20; TEMP 36.2; O2SAT 98; BMI 37.4
[2019-11-29 00:20] LABS: Glucose Point of Care 303 (65-105)
[2019-11-29] MEDS: SODIUM CHLORIDE 0.9% IV 1,000 ML 100 ML IV CONT ×3 (00:24→20:22)
--- NOTE | 2019-11-29 00:26 | ADMGEN ---
This patient, Jer Parikh, was admitted to 2 Medical Room 244-. Patient/family oriented to hospital policies and general routines including ID bracelet, bed and alarms, visiting hours, pain management, procedures, bathroom and other care routines, personal items, smoking policy, room service/diet, and visiting hours. Valuables list has been completed. Information on how to activate the Rapid Response Team has been discussed. Patient/Family are encouraged to report perceived risks to care and to ask questions if they do not understand what they are told or what they should do.
[2019-11-29 05:27] VITALS: BP 114/59; PULSE 63; RESP 16; TEMP 36.3; O2SAT 95
[2019-11-29 05:37] LABS: Basophils Absolute Auto 0.1 K/mm3 (0.0-0.1); Basophils Percent Auto 1.1 % (0.2-1.2); Eosinophils Absolute Auto 0.4 K/mm3 (0-0.3); Eosinophils Percent Auto 4.5 % (0-4.4); Hematocrit 38.1 % (42.0-52.0); Hemoglobin 13.1 g/dL (14.0-18.0); Immature Granulocyte Absolute 0.05 K/mm3 (0.00-0.031); Immature Granulocyte Percent A 0.6 % (0-0.5); Lymphocytes Absolute Auto 1.64 K/mm3 (0.9-3.2); Lymphocytes Percent Auto 20.6 % (18.3-44.2); Mean Corpuscular HGB Conc 34.4 g/dl (32-36); Mean Corpuscular Volume 90.1 fl (80-100); Mean Platelet Volume 11.1 fl (7.4-10.4); Monocytes Percent Auto 12.6 % (2.6-8.5); Neutrophils Absolute Auto 4.8 K/mm3 (1.3-6.7); Neutrophils Percent Auto 60.6 % (45.5-73.1); Platelet Count Result 249 k/mm3 (150-375); Red Blood Count 4.23 M/mm3 (4.6-6.20)
[2019-11-29 05:42] LABS: Alanine Aminotransferase 100 U/L (4-50); Albumin Level 3.5 g/dL (3.5-5.1); Alkaline Phosphatase 508 U/L (38-126); Anion Gap 9 mmol/L (8-16); Aspartate Amino Transferase 100 U/L (17-59); Bilirubin,Total 1.9 mg/dL (0.2-1.3); Blood Urea Nitrogen 34 mg/dL (9-20); Calcium 8.7 mg/dL (8.4-10.2); Carbon Dioxide 24 mmol/L (22-30); Chloride 99 mmol/L (98-107); Estimated CRCL calculation 33 ml/min; Estimated Glomerular Filt Rate 33; Glucose 135 mg/dL (75-110); Potassium 3.9 mmol/L (3.4-5.0); Sodium 132 mmol/L (137-145)
[2019-11-29 06:37] LABS: Glucose Point of Care 147 (65-105)
[2019-11-29] MEDS: LEVOTHYROXINE SODIUM 112 MCG TABLET PO (06:38)
[2019-11-29 07:52] LABS: Glucose Point of Care 162 (65-105)
[2019-11-29 08:28] LABS: HAV RESULT Negative (Negative); Hepatitis B Core IgM Result Negative (Negative); Hepatitis B Surface Antigen Negative (Negative)
[2019-11-29 08:40] LABS: Hepatitis C Virus Antibody Negative (Negative)
[2019-11-29] MEDS: APIXABAN 5 MG TABLET PO ×2 (09:12→16:56)
[2019-11-29 09:13] VITALS: PULSE 68
[2019-11-29] MEDS: METOPROLOL TARTRATE 50 MG TAB 100 MG PO ×2 (09:13→16:57)
--- NOTE | 2019-11-29 09:29 | PC.NURSE ---
Patient in need of diabetic education. Consult for clinical trial educator. Called and clinical trial educator unavailable until Monday. Will review diabetic education kit with patient. Dietitian to see patient today.
--- NOTE | 2019-11-29 10:41 | PM.CNNEP ---
Assessment and Plan Assessment and plan (1) Abnormal results of kidney function studies: Code(s): R94.4 - Abnormal results of kidney function studies Status: Acute Assessment and Plan: the patient has an elevated creatinine. In August it was this high but improved. In September it was mildly high and now the creatinine is 2. It improved slightly with IV fluids overnight. He does have diabetes but this is very new in onset and I doubt if this is causing diabetic nephropathy already. He is newly diagnosed and therefore sugars might be extra high and so could have had osmotic diuresis causing this high creatinine. Notably his sugar was 400 overnight , so he probably has had these kind of sugars lately. So IV fluids and sugar control should help this. He has had hypertension for a long time as well and so could have some element of hypertensive nephropathy. But this would not explain the change in creatinine since August and September. He probably has some vascular disease in the kidneys as well. There other causes such as glomerulonephritis, interstitial nephritis, infiltrative diseases, and obstruction that can cause his creatinine to be worse. He does have some prostatic symptoms. Will see what the ultrasound show. (2) Hyponatremia: Code(s): E87.1 - Hypo-osmolality and hyponatremia Status: Chronic Assessment and Plan: His sodium level is chronically low. Even as far back as 2011. Will check electrophoresis, cortisol. I do not think he has got cancer for 8 years which has been undiagnosed. Chest x-ray is clear. Neurologic exam is normal. I asked him to drink if thirsty but not if he is not. (3) Transaminitis: Code(s): R74.0 - Nonspecific elevation of levels of transaminase and lactic acid dehydrogenase [LDH] Status: Acute Assessment and Plan: Evaluation is underway. (4) Diabetes mellitus: Qualifiers: Diabetes mellitus type: type 2 Diabetes mellitus retirement insulin use: without intermediate frame tender use Diabetes mellitus complication status: with hyperglycemia Qualified Code(s): E11.65 - Type 2 diabetes mellitus with hyperglycemia Code(s): E11.9 - Type 2 diabetes mellitus without complications Status: Acute Assessment and Plan: This is a new diagnosis. (5) Essential hypertension: Code(s): I10 - Essential (primary) hypertension Status: Chronic Assessment and Plan: Blood pressure is under good control (6) Hypothyroidism: Qualifiers: Hypothyroidism type: acquired Qualified Code(s): E03.9 - Hypothyroidism, unspecified Code(s): E03.9 - Hypothyroidism, unspecified Status: Chronic Assessment and Plan: we can check a TSH (7) Atherosclerotic heart disease of [place] coronary artery with angina pectoris: Code(s): I25.119 - Atherosclerotic heart disease of [place] coronary artery with unspecified angina pectoris Status: Chronic Assessment and Plan: no current active issues History of Present Illness Reason for Consult Consult date: 11/29/19 Chief Complaint Chief complaint: acute on chronic renal failure, hyponatremia, History of Present Illness Narrative: Jer is a very pleasant 78-year-old gentleman who has an elevated creatinine. He came into the hospital with abnormal labs. He was recently diagnosed with diabetes. Few days ago the patient saw his primary care doctor who put him on metformin. He jeff some labs at the same time. The next day the labs came back and his creatinine was elevated so he was instructed to go to the emergency room. he says he only took 1 of the Metformin. During that hospital visit his losartan was also decreased [id number] per day to25mg per day. He does not really know why. He does not remember his blood pressure being low. The patient feels fine. He never did feel bad. He has been eating and drinking well. No nausea or diarrhea.
[2019-11-29 11:50] LABS: Glucose Point of Care 242 (65-105)
[2019-11-29] MEDS: CHOLECALCIFEROL 1,000 UNITS TABLET 2000 UNITS PO (11:51)
--- NOTE | 2019-11-29 12:52 | P.PNIM_ITS ---
Progress Note: A&P Assessment and Plan (1) Diabetes mellitus: Qualifiers: Diabetes mellitus complication status: with hyperglycemia Diabetes mellitus terminal manager insulin use: without penitentiary use Diabetes mellitus type: type 2 Qualified Code(s): E11.65 - Type 2 diabetes mellitus with hyperglycemia Code(s): E11.9 - Type 2 diabetes mellitus without complications Status: Acute Assessment and Plan: New onset. He was recently diagnosed in September 2019 and was given an endocrinology appointment in December. He has not had any additional diabetes education or training. Blood sugars have been reasonable. He did have a fasting sugar in the 400s yesterday but additional readings have been fair. * Continue accuchecks ACHS, SSI, and hypoglycemic protocol * Hold metformin * Consult has been placed to music educator * Continue diabetic diet * Check A1c (2) Acute renal failure: Qualifiers: Acute renal failure type: unspecified Qualified Code(s): N17.9 - Acute kidney failure, unspecified Code(s): N17.9 - Acute kidney failure, unspecified Status: Acute Assessment and Plan: Upon review of prior labs, it seems he has had elevation in the past. At presentation, creatinine was 2.2. Improved to 2.0 today. Renal US revealed normal kidneys without hydronephrosis. * Nephrology consult has been placed and recommendations are appreciated. * Continue gentle IV fluid hydration * Hold metformin and losartan * Monitor renal function closely (3) Hyponatremia: Code(s): E87.1 - Hypo-osmolality and hyponatremia Status: Chronic Assessment and Plan: Chronic based on review of prior labs. Improved today to 132. He is asymptomatic. * Continue IV fluid hydration * Monitor sodium levels closely (4) Transaminitis: Code(s): R74.0 - Nonspecific elevation of levels of transaminase and lactic acid dehydrogenase [LDH] Status: Acute Assessment and Plan: Etiology is unclear at this time. It is possible this is secondary to alcohol abuse, however patient denies extensive alcohol history and reports drinking 3 drinks per week typically. LFTs are elevated but showing mild improvement compared to yesterday. Total bili is 1.9. * Hepatitis panel is negative. * Will obtain RUQ ultrasound * Continue to trend LFTs * hold simvastatin and metformin. Avoid acetaminophen. (5) COPD (chronic obstructive pulmonary disease): Qualifiers: COPD type: unspecified COPD Qualified Code(s): J44.9 - Chronic obstructive pulmonary disease, unspecified Code(s): J44.9 - Chronic obstructive pulmonary disease, unspecified Status: Chronic Assessment and Plan: He is maintaining adequate oxygenation on room air. * Continue bronchodilators. * Monitor O2 saturation and provide supplemental oxygen as needed with goal O2 90% or above. (6) Hypothyroidism: Qualifiers: Hypothyroidism type: acquired Qualified Code(s): E03.9 - Hypothyroidism, unspecified Code(s): E03.9 - Hypothyroidism, unspecified Status: Chronic Assessment and Plan: Chronic. * Continue levothyroxine PO. * Check TSH (7) Paroxysmal atrial fibrillation: Code(s): I48.0 - Paroxysmal atrial fibrillation Status: Chronic Assessment and Plan: Rate is controlled. * Continue metoprolol and Eliquis (8) Essential hypertension: Code(s): I10 - Essential (primary) hypertension
--- NOTE | 2019-11-29 12:52 | PM.IMPN ---
Progress Note: A&P Assessment and Plan (1) Diabetes mellitus: Qualifiers: Diabetes mellitus complication status: with hyperglycemia Diabetes mellitus terminal make up operator insulin use: without intermediate use Diabetes mellitus type: type 2 Qualified Code(s): E11.65 - Type 2 diabetes mellitus with hyperglycemia Code(s): E11.9 - Type 2 diabetes mellitus without complications Status: Acute Assessment and Plan: New onset. He was recently diagnosed in September 2019 and was given an endocrinology appointment in December. He has not had any additional diabetes education or training. Blood sugars have been reasonable. He did have a fasting sugar in the 400s yesterday but additional readings have been fair. Continue accuchecks ACHS, SSI, and hypoglycemic protocol Hold metformin Consult has been placed to parent educator Continue diabetic diet Check A1c (2) Acute renal failure: Qualifiers: Acute renal failure type: unspecified Qualified Code(s): N17.9 - Acute kidney failure, unspecified Code(s): N17.9 - Acute kidney failure, unspecified Status: Acute Assessment and Plan: Upon review of prior labs, it seems he has had elevation in the past. At presentation, creatinine was 2.2. Improved to 2.0 today. Renal US revealed normal kidneys without hydronephrosis. Nephrology consult has been placed and recommendations are appreciated. Continue gentle IV fluid hydration Hold metformin and losartan Monitor renal function closely (3) Hyponatremia: Code(s): E87.1 - Hypo-osmolality and hyponatremia Status: Chronic Assessment and Plan: Chronic based on review of prior labs. Improved today to 132. He is asymptomatic. Continue IV fluid hydration Monitor sodium levels closely (4) Transaminitis: Code(s): R74.0 - Nonspecific elevation of levels of transaminase and lactic acid dehydrogenase [LDH] Status: Acute Assessment and Plan: Etiology is unclear at this time. It is possible this is secondary to alcohol abuse, however patient denies extensive alcohol history and reports drinking 3 drinks per week typically. LFTs are elevated but showing mild improvement compared to yesterday. Total bili is 1.9. Hepatitis panel is negative. Will obtain RUQ ultrasound Continue to trend LFTs hold simvastatin and metformin. Avoid acetaminophen. (5) COPD (chronic obstructive pulmonary disease): Qualifiers: COPD type: unspecified COPD Qualified Code(s): J44.9 - Chronic obstructive pulmonary disease, unspecified Code(s): J44.9 - Chronic obstructive pulmonary disease, unspecified Status: Chronic Assessment and Plan: He is maintaining adequate oxygenation on room air. Continue bronchodilators. Monitor O2 saturation and provide supplemental oxygen as needed with goal O2 90% or above. (6) Hypothyroidism: Qualifiers: Hypothyroidism type: acquired Qualified Code(s): E03.9 - Hypothyroidism, unspecified Code(s): E03.9 - Hypothyroidism, unspecified Status: Chronic Assessment and Plan: Chronic. Continue levothyroxine PO. Check TSH (7) Paroxysmal atrial fibrillation: Code(s): I48.0 - Paroxysmal atrial fibrillation Status: Chronic Assessment and Plan: Rate is controlled. Continue metoprolol and Eliquis (8) Essential hypertension: Code(s): I10 - Essential (primary) hypertension Status: Chronic Assessment and Plan: Blood pressures are well controlled at this time. Continue metoprolol Hold losartan at this time given DERRICK Subjective Date/time seen: 11/29/19 12:52 Interval history: Date of service: 11/29/2019 He reports he is feeling well today. He complains of some vague back pain that has been bothering him for some time. He denies any additional pain and he says he essentially feels he is in his
[2019-11-29 12:59] LABS: Creatine Kinase 41 U/L (55-170)
[2019-11-29 13:07] LABS: Complement C3 121 mg/dL (88-165)
[2019-11-29 13:25] LABS: Erythrocyte Sedimentation Rate 84 mm/hr (0-20)
[2019-11-29 13:28] VITALS: BMI 37.4
--- NOTE | 2019-11-29 13:28 | PC.NURSE ---
Outpatient referral started for Initial DSMT and MNT. [facility]
[2019-11-29 13:34] LABS: Add Urine Microscopic? YES; Appearance Urine Clear (Clear); Bilirubin Urine Negative (Negative); Blood Urine 2+ (Negative); Color Urine Yellow (Yellow); Glucose Urine UA 3+ mg/dL (Negative); Ketones Urine Negative (Negative); Leukocyte Esterase Ur Negative LEU/UL (NEGATIVE); Mucus Urine Rare /lpf; Nitrate Urine Negative (Negative); Protein Urine 1+ mg/dL (Negative); Specific Grav Ur 1.015 (1.001-1.035); Squamous Epithelial Cell Urine Rare /hpf (Few); WBC Urine 0-3 /hpf (0-3)
[2019-11-29 13:48] LABS: Creatinine Urine 97.2 mg/dL; Total Protein Urine Random 58 mg/dL
[2019-11-29 13:53] LABS: Sodium Urine Random 81 meq/L
[2019-11-29 13:54] VITALS: BP 138/68; PULSE 71; RESP 20; TEMP 36.2; O2SAT 98
--- NOTE | 2019-11-29 14:03 | PCNSR ---
On 11/29/19, the student, Jordi Jones, provided care and completed [facility] documentation on this patient. I have reviewed the student's documentation and agree with the findings.
[2019-11-29 16:36] LABS: Glucose Point of Care 285 (65-105)
[2019-11-29 16:57] VITALS: PULSE 64
--- NOTE | 2019-11-29 17:00 | PC.NURSE ---
Diabetic education: Discussed with patient and son - obtaining a glucose meter and how to monitor blood sugars and keep of log. Reviewed normal readings. Gave patient voucher for obtaining glucometer at discharge. Also explained process to patient's son. Discussed outpatient in service educator appointment and f/u with outpatient dietitian. Discussed the [facility] and the importance of outpatient followup and monitoring. Gave patient handbook on Diabetes Management. Reviewed topics like diet, exercise, diabetic medications and glucose monitoring. Patient verbalizes understanding but states it is a lot of information and he is exhausted . All resource materials left at bedside. Outpatient followup reviewed with patient's son as well.
[2019-11-29] MEDS: MELATONIN 3 MG TABLET PO (20:23)
[2019-11-29 21:23] VITALS: BP 139/74; PULSE 74; RESP 18; TEMP 36.1; O2SAT 98
[2019-11-29 22:48] LABS: Glucose Point of Care 273 (65-105)
[2019-11-30] MEDS: LEVOTHYROXINE SODIUM 112 MCG TABLET PO (05:58)
[2019-11-30 06:00] VITALS: BP 118/55; PULSE 67; RESP 16; TEMP 36.4; O2SAT 100
[2019-11-30] MEDS: SODIUM CHLORIDE 0.9% IV 1,000 ML 100 ML IV CONT ×2 (06:00→18:27)
[2019-11-30 06:10] LABS: Alanine Aminotransferase 117 U/L (4-50); Albumin Level 3.2 g/dL (3.5-5.1); Alkaline Phosphatase 501 U/L (38-126); Anion Gap 7 mmol/L (8-16); Aspartate Amino Transferase 150 U/L (17-59); Blood Urea Nitrogen 29 mg/dL (9-20); Calcium 8.4 mg/dL (8.4-10.2); Carbon Dioxide 23 mmol/L (22-30); Chloride 101 mmol/L (98-107); Estimated CRCL calculation 41 ml/min; Estimated Glomerular Filt Rate 42; Glucose 234 mg/dL (75-110); Potassium 4.1 mmol/L (3.4-5.0); Sodium 131 mmol/L (137-145)
[2019-11-30 06:20] LABS: Basophils Absolute Auto 0.1 K/mm3 (0.0-0.1); Basophils Percent Auto 1.4 % (0.2-1.2); Eosinophils Absolute Auto 0.4 K/mm3 (0-0.3); Eosinophils Percent Auto 8.2 % (0-4.4); Hematocrit 35.1 % (42.0-52.0); Hemoglobin 11.8 g/dL (14.0-18.0); Immature Granulocyte Absolute 0.03 K/mm3 (0.00-0.031); Immature Granulocyte Percent A 0.6 % (0-0.5); Lymphocytes Absolute Auto 1.02 K/mm3 (0.9-3.2); Lymphocytes Percent Auto 20.9 % (18.3-44.2); Mean Corpuscular HGB Conc 33.6 g/dl (32-36); Mean Corpuscular Hemoglobin 30.3 pg (26-34); Mean Corpuscular Volume 90.2 fl (80-100); Mean Platelet Volume 11.4 fl (7.4-10.4); Monocytes Absolute Auto 0.5 K/mm3 (0.1-0.6); Monocytes Percent Auto 10.5 % (2.6-8.5); Neutrophils Absolute Auto 2.9 K/mm3 (1.3-6.7); Neutrophils Percent Auto 58.4 % (45.5-73.1); Platelet Count Result 225 k/mm3 (150-375); Red Blood Count 3.89 M/mm3 (4.6-6.20); Red Cell Distribution Width 13.1 % (11.5-14.5); White Blood Count 4.9 K/mm3 (4.5-10.0)
[2019-11-30 07:32] LABS: Thyroid Stimulating Hormone Reflex 0.661 uIU/mL (0.465-4.68)
[2019-11-30 09:24] LABS: Glucose Point of Care 217 (65-105)
[2019-11-30] MEDS: INSULIN ASPART (*BKC) 100 UNITS/ML SUB-Q ×3 (09:29→16:35)
[2019-11-30 09:30] VITALS: PULSE 60
[2019-11-30] MEDS: METOPROLOL TARTRATE 50 MG TAB 100 MG PO ×2 (09:30→16:33)
[2019-11-30] MEDS: APIXABAN 5 MG TABLET PO ×2 (09:30→16:33)
[2019-11-30 10:50] LABS: Hemoglobin A1C 10.5 % (<5.7)
--- NOTE | 2019-11-30 11:48 | PM.PNNEP ---
Progress Note: A&P Assessment and Plan (1) Abnormal results of kidney function studies: Code(s): R94.4 - Abnormal results of kidney function studies Status: Acute Assessment and Plan: the patient has an elevated creatinine. renal ultrasound is normal. Urine electrolytes are non pre renal. I suspect that the patient was pre renal due to osmotic diuresis from his high sugars over the last few weeks. He is better with IV fluids. (2) Hyponatremia: Code(s): E87.1 - Hypo-osmolality and hyponatremia Status: Chronic Assessment and Plan: His sodium level is chronically low. Even as far back as 2011. TSH is okay. Cortisol is borderline low. Will get a Cortrosyn stimulation test. (3) Transaminitis: Code(s): R74.0 - Nonspecific elevation of levels of transaminase and lactic acid dehydrogenase [LDH] Status: Acute Assessment and Plan: Evaluation is underway. (4) Diabetes mellitus: Qualifiers: Diabetes mellitus type: type 2 Diabetes mellitus data analytics architect insulin use: without shelter use Diabetes mellitus complication status: with hyperglycemia Qualified Code(s): E11.65 - Type 2 diabetes mellitus with hyperglycemia Code(s): E11.9 - Type 2 diabetes mellitus without complications Status: Acute Assessment and Plan: This is a new diagnosis. 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 Eating okay now. He got up to the bathroom on his own and is doing well ambulating. Review of Systems Cardiovascular: Cardiovascular: Reports no additional cardiovascular complaints Respiratory: Respiratory: Reports no additional respiratory complaints Gastrointestinal: Gastrointestinal: Reports no additional gastrointestinal complaints Genitourinary: Genitourinary: Reports no additional male genitourinary complaints Exam Narrative: Exam Narrative: WDWN in NAD skin no rash head ncat lungs clear cor reg no rub abd BS+ nontender and soft ext no edema. Objective Data Vital Signs Vital Signs: Vital Signs - 24 hr 11/29/19 13:54 11/29/19 16:57 11/29/19 21:23 Temperature 36.2 C L 36.1 C L Pulse Rate 71 64 74 Respiratory Rate 20 18 Blood Pressure 138/68 139/74 Pulse Oximetry 98 98 11/30/19 06:00 11/30/19 09:30 Temperature 36.4 C Pulse Rate 67 60 Respiratory Rate 16 Blood Pressure 118/55 L Pulse Oximetry 100 Intake/Output Intake/Output: Intake & Output 11/27/19 11/28/19 11/29/19 11/30/19 23:59 23:59 23:59 23:59 Intake Total 500 4770 1390 Output Total 750 700 Balance 500 4020 690 Meds/Results Medications: Active Medications Generic Name Dose Route Start Last Admin Trade Name Freq PRN Reason Stop Dose Admin Albuterol 1 puff 11/29/19 05:24 Proventil Hfa INHALATION Q4H PRN shortness of breath or wheezing Apixaban 5 mg 11/29/19 09:00 11/30/19 09:30 Eliquis PO 5 mg BID JENNIFER Administration Dextrose 12.5 gm 11/28/19 23:12 Dextrose 50% Syringe IV PUSH PRN PRN Hypoglycemia Protocol Glucagon 1 mg 11/28/19 23:12 Glucagon For Inj IM PRN PRN Hypoglycemia Pr
[2019-11-30 12:00] LABS: Glucose Point of Care 285 (65-105)
--- NOTE | 2019-11-30 12:23 | PM.IMPN ---
Progress Note: A&P Assessment and Plan (1) Diabetes mellitus: Qualifiers: Diabetes mellitus complication status: with hyperglycemia Diabetes mellitus long term care phlebotomist insulin use: without long-term use Diabetes mellitus type: type 2 Qualified Code(s): E11.65 - Type 2 diabetes mellitus with hyperglycemia Code(s): E11.9 - Type 2 diabetes mellitus without complications Status: Acute Assessment and Plan: New onset. He was recently diagnosed in September 2019 and was given an endocrinology appointment in December. He has not had any additional diabetes education or training. Blood sugars have been reasonable. He did have a fasting sugar in the 400s but additional readings have been fair. Most recent A1c is 10.5 (11/30/19). Last A1c was in September and was 8.6. Continue accuchecks ACHS, SSI, and hypoglycemic protocol Hold metformin given DERRICK Consult has been placed to clinical nurse educator, however unfortunately she is unavailable. Will ask nursing staff to provide diabetic education including monitoring blood glucose with glucometer. Continue diabetic diet Patient's A1c has increased. Resume metformin when appropriate and will add glipizide at 2.5 mg daily given renal and hepatic impairment with further uptitration as appropriate. I will hold off on initiating home insulin at this time as patient has an endocrinology appointment soon (2) Acute renal failure: Qualifiers: Acute renal failure type: unspecified Qualified Code(s): N17.9 - Acute kidney failure, unspecified Code(s): N17.9 - Acute kidney failure, unspecified Status: Acute Assessment and Plan: Upon review of prior labs, it seems he has had elevation in the past. At presentation, creatinine was 2.2. Improved to 1.6 today. Renal US revealed normal kidneys without hydronephrosis. Nephrology consult has been placed and recommendations are appreciated. Continue gentle IV fluid hydration Hold metformin and losartan Monitor renal function closely (3) Hyponatremia: Code(s): E87.1 - Hypo-osmolality and hyponatremia Status: Chronic Assessment and Plan: Chronic based on review of prior labs. Improved today to 131 (134 when corrected for hyperglycemia). He is asymptomatic. Continue IV fluid hydration Monitor sodium levels closely Nephrology is following. Cortisol stimulation test is pending based on borderline low cortisol level. (4) Transaminitis: Code(s): R74.0 - Nonspecific elevation of levels of transaminase and lactic acid dehydrogenase [LDH] Status: Acute Assessment and Plan: Etiology is unclear at this time. It is possible this is secondary to alcohol abuse, however patient denies extensive alcohol history and reports drinking 3 drinks per week typically. LFTs remain mildly elevated. Total bili is 2.0. RUQ US showed a normal liver. Platelets are normal. Hepatitis panel is negative. Continue to trend LFTs Hold simvastatin and metformin. Avoid acetaminophen. Consider GI consult if worsening. He will certainly benefit from outpatient GI referral upon discharge for further monitoring. (5) COPD (chronic obstructive pulmonary disease): Qualifiers: COPD type: unspecified COPD Qualified Code(s): J44.9 - Chronic obstructive pulmonary disease, unspecified Code(s): J44.9 - Chronic obstructive pulmonary disease, unspecified Status: Chronic Assessment and Plan: He is maintaining adequate oxygenation on room air. Continue bronchodilators. Monitor O2 saturation and provide supplemental oxygen as needed with goal O2 90% or above. (6) Hypothyroidism: Qualifiers: Hypothyroidism type: acquired Qualified Code(s): E03.9 - Hypothyroidism, unspecified Code(s): E03.9 - Hypothyroidism, unspecified Status: Chronic Assessment and Plan: Chronic. TSH is within normal limits. Continue levothyroxin
[2019-11-30] MEDS: COSYNTROPIN 0.25 MG/ML VIAL IV PUSH (12:25)
[2019-11-30 14:00] VITALS: BP 127/69; PULSE 61; RESP 14; TEMP 36.2; O2SAT 99
[2019-11-30] MEDS: CHOLECALCIFEROL 1,000 UNITS TABLET 2000 UNITS PO (14:10)
[2019-11-30 16:31] LABS: Glucose Point of Care 364 (65-105)
[2019-11-30 16:33] VITALS: PULSE 70
[2019-11-30] MEDS: MELATONIN 3 MG TABLET PO (21:14)
[2019-11-30 21:19] LABS: Glucose Point of Care 397 (65-105)
[2019-11-30 21:28] VITALS: BP 145/80; PULSE 62; RESP 16; TEMP 35.9; O2SAT 97
[2019-12-01] MEDS: SODIUM CHLORIDE 0.9% IV 1,000 ML 100 ML IV CONT (04:36)
[2019-12-01] MEDS: glipiZIDE 2.5 MG TABLET PO (05:20)
[2019-12-01] MEDS: LEVOTHYROXINE SODIUM 112 MCG TABLET PO (05:20)
[2019-12-01 05:43] LABS: Hematocrit 32.8 % (42.0-52.0); Hemoglobin 11.2 g/dL (14.0-18.0); Mean Corpuscular HGB Conc 34.1 g/dl (32-36); Mean Corpuscular Hemoglobin 30.9 pg (26-34); Mean Corpuscular Volume 90.6 fl (80-100); Mean Platelet Volume 11.5 fl (7.4-10.4); Platelet Count Result 203 k/mm3 (150-375); Red Blood Count 3.62 M/mm3 (4.6-6.20); Red Cell Distribution Width 13.1 % (11.5-14.5)
[2019-12-01 05:56] LABS: Albumin Level 2.9 g/dL (3.5-5.1); Anion Gap 6 mmol/L (8-16); Blood Urea Nitrogen 27 mg/dL (9-20); Carbon Dioxide 20 mmol/L (22-30); Chloride 106 mmol/L (98-107); Estimated CRCL calculation 47 ml/min; Estimated Glomerular Filt Rate 49; Glucose 224 mg/dL (75-110); Phosphorus 2.9 mg/dL (2.5-4.5); Potassium 3.7 mmol/L (3.4-5.0); Sodium 132 mmol/L (137-145)
[2019-12-01 06:00] VITALS: BP 138/68; PULSE 68; RESP 16; TEMP 36.2; O2SAT 98
[2019-12-01 08:08] LABS: Alanine Aminotransferase 103 U/L (4-50); Alkaline Phosphatase 418 U/L (38-126); Anion Gap 6 mmol/L (8-16); Aspartate Amino Transferase 95 U/L (17-59); Bilirubin,Total 1.4 mg/dL (0.2-1.3); Blood Urea Nitrogen 20 mg/dL (9-20); Carbon Dioxide 19 mmol/L (22-30); Chloride 107 mmol/L (98-107); Estimated CRCL calculation 47 ml/min; Estimated Glomerular Filt Rate 49; Glucose 222 mg/dL (75-110); Potassium 3.6 mmol/L (3.4-5.0); Sodium 132 mmol/L (137-145)
[2019-12-01 08:11] LABS: Glucose Point of Care 193 (65-105)
--- NOTE | 2019-12-01 08:36 | PM.PNNEP ---
Progress Note: A&P Assessment and Plan (1) Abnormal results of kidney function studies: Code(s): R94.4 - Abnormal results of kidney function studies Status: Acute Assessment and Plan: the patient has an elevated creatinine. renal ultrasound is normal. Urine electrolytes are non pre renal. I suspect that the patient was pre renal due to osmotic diuresis from his high sugars over the last few weeks. sugars are improving. Mostly below 300. Urine output is doing pretty well. Will cut fluids down to 50 and see how he does. Repeat UA tomorrow to see if he still has glycosuria (2) Hyponatremia: Code(s): E87.1 - Hypo-osmolality and hyponatremia Status: Chronic Assessment and Plan: His sodium level is chronically low. Even as far back as 2011. TSH is okay. Cortrosyn stim is okay. (3) Transaminitis: Code(s): R74.0 - Nonspecific elevation of levels of transaminase and lactic acid dehydrogenase [LDH] Status: Acute Assessment and Plan: Evaluation is underway. (4) Diabetes mellitus: Qualifiers: Diabetes mellitus type: type 2 Diabetes mellitus custodial operations manager insulin use: without group home use Diabetes mellitus complication status: with hyperglycemia Qualified Code(s): E11.65 - Type 2 diabetes mellitus with hyperglycemia Code(s): E11.9 - Type 2 diabetes mellitus without complications Status: Acute Assessment and Plan: This is a new diagnosis. 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 He is eating and drinking well. No swelling or shortness of breath Review of Systems Cardiovascular: Cardiovascular: Reports no additional cardiovascular complaints Respiratory: Respiratory: Reports no additional respiratory complaints Gastrointestinal: Gastrointestinal: Reports no additional gastrointestinal complaints Genitourinary: Genitourinary: Reports no additional male genitourinary complaints Exam Narrative: Exam Narrative: WDWN in NAD skin no rash head ncat lungs clear cor reg no rub abd BS+ nontender and soft ext no edema. Objective Data Vital Signs Vital Signs: Vital Signs - 24 hr 11/30/19 09:30 11/30/19 14:00 11/30/19 16:33 Temperature 36.2 C L Pulse Rate 60 61 70 Respiratory Rate 14 Blood Pressure 127/69 Pulse Oximetry 99 11/30/19 21:28 12/01/19 06:00 Temperature 35.9 C L 36.2 C L Pulse Rate 62 68 Respiratory Rate 16 16 Blood Pressure 145/80 H 138/68 Pulse Oximetry 97 98 Intake/Output Intake/Output: Intake & Output 11/28/19 11/29/19 11/30/19 12/01/19 23:59 23:59 23:59 23:59 Intake Total 500 4770 3470 1100 Output Total 750 900 700 Balance 500 4020 2570 400 Meds/Results Medications: Active Medications Generic Name Dose Route Start Last Admin Trade Name Freq PRN Reason Stop Dose Admin Albuterol 1 puff 11/29/19 05:24 Proventil Hfa INHALATION Q4H PRN shortness of breath or wheezing Apixaban 5 mg 11/29/19 09:00 11/30/19 16:33 Eliquis PO 5 mg BID JENNIFER Administration Dextrose 12.5 gm 11/28/19 23:12 Dextrose 50% Syringe I
[2019-12-01] MEDS: APIXABAN 5 MG TABLET PO ×2 (09:13→16:44)
[2019-12-01 09:14] VITALS: PULSE 60
[2019-12-01] MEDS: METOPROLOL TARTRATE 50 MG TAB 100 MG PO ×2 (09:14→16:44)
--- NOTE | 2019-12-01 10:02 | PM.IMPN ---
Progress Note: A&P Assessment and Plan (1) Diabetes mellitus: Qualifiers: Diabetes mellitus type: type 2 Diabetes mellitus mcc insulin use: without adjunct faculty for medical terminology use Diabetes mellitus complication status: with hyperglycemia Qualified Code(s): E11.65 - Type 2 diabetes mellitus with hyperglycemia Code(s): E11.9 - Type 2 diabetes mellitus without complications Status: Acute Assessment and Plan: New onset. He was recently diagnosed in September 2019 and was given an endocrinology appointment in December. He has not had any additional diabetes education or training. Blood sugars have been reasonable. He did have a fasting sugar in the 400s but additional readings have been fair. Most recent A1c is 10.5 (11/30/19). Last A1c was in September was 8.6. Continue accuchecks ACHS, SSI, and hypoglycemic protocol Hold metformin given DERRICK Consult has been placed to patient educator, however unfortunately she is unavailable. Will ask nursing staff to provide diabetic education including monitoring blood glucose with glucometer. Will also plan to schedule an outpatient CDE appointment. Continue diabetic diet Continue glipizide at 2.5 mg daily given renal and hepatic impairment with further uptitration as appropriate. I will hold off on initiating home insulin at this time and will defer to PCP or endocrinology. He has an boat crew deck hand appointment scheduled in December and a PCP appointment on 12/03/19. (2) Acute renal failure: Qualifiers: Acute renal failure type: unspecified Qualified Code(s): N17.9 - Acute kidney failure, unspecified Code(s): N17.9 - Acute kidney failure, unspecified Status: Acute Assessment and Plan: Upon review of prior labs, it seems he has had elevation in the past. At presentation, creatinine was 2.2. Improved to 1.6 today. Renal US revealed normal kidneys without hydronephrosis. Nephrology consult has been placed and recommendations are appreciated. Continue gentle IV fluid hydration at decreased rate of 50 mls/hr Hold metformin and losartan Monitor renal function closely (3) Hyponatremia: Code(s): E87.1 - Hypo-osmolality and hyponatremia Status: Chronic Assessment and Plan: Chronic based on review of prior labs. Improved today to 132 (135 when corrected for hyperglycemia). He is asymptomatic. Continue IV fluid hydration Nephrology is following and recommendations are appreciated. Cortisol and cortisol stimulation test were acceptable. TSH is wnl. (4) Transaminitis: Code(s): R74.0 - Nonspecific elevation of levels of transaminase and lactic acid dehydrogenase [LDH] Status: Acute Assessment and Plan: Etiology is unclear at this time. It is possible this is secondary to alcohol abuse, however patient denies extensive alcohol history and reports drinking 3 drinks per week typically. LFTs remain mildly elevated but improving. Total bili is 1.4. RUQ US showed a normal liver. Platelets are normal. Hepatitis panel is negative. Continue to trend LFTs Hold simvastatin and metformin. Avoid acetaminophen. Consider GI consult if worsening. He will certainly benefit from outpatient GI referral upon discharge for further monitoring. Plan to repeat LFTs one week following discharge I educated the patient on avoidance of alcohol (5) COPD (chronic obstructive pulmonary disease): Qualifiers: COPD type: unspecified COPD Qualified Code(s): J44.9 - Chronic obstructive pulmonary disease, unspecified Code(s): J44.9 - Chronic obstructive pulmonary disease, unspecified Status: Chronic Assessment and Plan: He is maintaining adequate oxygenation on room air. Continue bronchodilators. Monitor O2 saturation and provide supplemental oxygen as needed with goal O2 90% or above. (6) Hypothyroidism: Qualifiers: Hypothyroidism type: acquired Qualified Code(s):
[2019-12-01 12:14] LABS: Glucose Point of Care 250 (65-105)
[2019-12-01] MEDS: CHOLECALCIFEROL 1,000 UNITS TABLET 2000 UNITS PO (12:16)
[2019-12-01] MEDS: INSULIN ASPART (*BKC) 100 UNITS/ML SUB-Q ×3 (12:16→22:32)
[2019-12-01 12:40] LABS: Add Urine Microscopic? YES; Appearance Urine Clear (Clear); Bacteria Urine Trace /hpf; Bilirubin Urine Negative (Negative); Blood Urine 1+ (Negative); Color Urine Yellow (Yellow); Glucose Urine UA 3+ mg/dL (Negative); Ketones Urine Negative (Negative); Leukocyte Esterase Ur Negative LEU/UL (NEGATIVE); Mucus Urine Rare /lpf; Nitrate Urine Negative (Negative); Protein Urine Negative (Negative); RBC Urine 0-2 /hpf (0-2); Specific Grav Ur 1.016 (1.001-1.035); Squamous Epithelial Cell Urine Rare /hpf (Few); WBC Urine 0-3 /hpf (0-3)
[2019-12-01 14:00] VITALS: BP 127/63; PULSE 51; RESP 14; TEMP 36.4; O2SAT 98
[2019-12-01 16:39] LABS: Glucose Point of Care 203 (65-105)
[2019-12-01 16:44] VITALS: PULSE 62
[2019-12-01] MEDS: SODIUM CHLORIDE 0.9% IV 1,000 ML 50 ML IV CONT (20:11)
[2019-12-01 21:59] VITALS: BP 151/69; PULSE 67; RESP 16; TEMP 36.4; O2SAT 97
[2019-12-01] MEDS: MELATONIN 3 MG TABLET PO (22:32)
[2019-12-01 23:26] LABS: Glucose Point of Care 207 (65-105)
[2019-12-02] MEDS: glipiZIDE 2.5 MG TABLET PO (05:44)
[2019-12-02] MEDS: LEVOTHYROXINE SODIUM 112 MCG TABLET PO (05:44)
[2019-12-02 05:46] VITALS: BP 145/82; PULSE 77; RESP 16; TEMP 36.3; O2SAT 97
[2019-12-02 05:56] LABS: Hematocrit 36.1 % (42.0-52.0); Hemoglobin 12.4 g/dL (14.0-18.0); Mean Corpuscular HGB Conc 34.3 g/dl (32-36); Mean Corpuscular Hemoglobin 30.8 pg (26-34); Mean Corpuscular Volume 89.8 fl (80-100); Mean Platelet Volume 10.8 fl (7.4-10.4); Platelet Count Result 237 k/mm3 (150-375); Red Blood Count 4.02 M/mm3 (4.6-6.20); Red Cell Distribution Width 13.2 % (11.5-14.5); White Blood Count 9.4 K/mm3 (4.5-10.0)
[2019-12-02 06:16] LABS: Albumin Level 3.3 g/dL (3.5-5.1); Anion Gap 7 mmol/L (8-16); Blood Urea Nitrogen 23 mg/dL (9-20); Calcium 8.4 mg/dL (8.4-10.2); Carbon Dioxide 21 mmol/L (22-30); Chloride 106 mmol/L (98-107); Estimated CRCL calculation 47 ml/min; Estimated Glomerular Filt Rate 49; Glucose 162 mg/dL (75-110); Phosphorus 3.2 mg/dL (2.5-4.5); Potassium 4.1 mmol/L (3.4-5.0); Sodium 134 mmol/L (137-145)
[2019-12-02 06:59] LABS: Glucose Point of Care 170 (65-105)
--- NOTE | 2019-12-02 07:38 | PM.PNNEP ---
Progress Note: A&P Assessment and Plan (1) Abnormal results of kidney function studies: Code(s): R94.4 - Abnormal results of kidney function studies Status: Acute Assessment and Plan: the patient has an elevated creatinine. renal ultrasound is normal. Urine electrolytes are non pre renal. I suspect that the patient was pre renal due to osmotic diuresis from his high sugars over the last few weeks. sugars are improving. Mostly below 200. Urine output is doing pretty well. fluids at 50 and creatinine stable. stop the fluids since he is eating. (2) Hyponatremia: Code(s): E87.1 - Hypo-osmolality and hyponatremia Status: Chronic Assessment and Plan: His sodium level is chronically low. Even as far back as 2011. TSH is okay. Cortrosyn stim is okay. (3) Transaminitis: Code(s): R74.0 - Nonspecific elevation of levels of transaminase and lactic acid dehydrogenase [LDH] Status: Acute Assessment and Plan: Evaluation is underway. 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 Adjusting meds to get this under control Sugars are doing much better (5) Essential hypertension: Code(s): I10 - Essential (primary) hypertension Status: Chronic Assessment and Plan: Blood pressure is doing well. 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 slept well no cp or sob. Review of Systems Cardiovascular: Cardiovascular: Reports no additional cardiovascular complaints Respiratory: Respiratory: Reports no additional respiratory complaints Gastrointestinal: Gastrointestinal: Reports no additional gastrointestinal complaints Genitourinary: Genitourinary: Reports no additional male genitourinary complaints Exam Narrative: Exam Narrative: WDWN in NAD skin no rash head ncat lungs clear bilaterally cor reg no rub abd BS+ nontender and soft ext no edema. Objective Data Vital Signs Vital Signs: Vital Signs - 24 hr 12/01/19 09:14 12/01/19 14:00 12/01/19 16:44 Temperature 36.4 C L Pulse Rate 60 51 L 62 Respiratory Rate 14 Blood Pressure 127/63 Pulse Oximetry 98 12/01/19 21:59 12/02/19 05:46 Temperature 36.4 C 36.3 C L Pulse Rate 67 77 Respiratory Rate 16 16 Blood Pressure 151/69 H 145/82 H Pulse Oximetry 97 97 Intake/Output Intake/Output: Intake & Output 11/29/19 11/30/19 12/01/19 12/02/19 23:59 23:59 23:59 23:59 Intake Total 4770 3470 3220 300 Output Total 001 730 3814 950 Balance 4020 2570 2020 -650 Meds/Results Medications: Active Medications Generic Name Dose Route Start Last Admin Trade Name Freq PRN Reason Stop Dose Admin Albuterol 1 puff 11/29/19 05:24 Proventil Hfa INHALATION Q4H PRN shortness of breath or wheezing Apixaban 5 mg 11/29/19 09:00 12/01/19 16:44 Eliquis PO 5 mg BID JENNIFER Administration Dextrose 12.5 gm 11/28/19 23:12 Dextrose 50% Syringe IV PUSH PRN PRN Hypoglycemia Protocol
[2019-12-02 07:46] LABS: Glucose Point of Care 148 (65-105)
[2019-12-02 08:18] VITALS: PULSE 76
[2019-12-02] MEDS: METOPROLOL TARTRATE 50 MG TAB 100 MG PO ×2 (08:18→17:28)
[2019-12-02 08:19] VITALS: RESP 16; O2SAT 97
[2019-12-02] MEDS: APIXABAN 5 MG TABLET PO ×2 (08:19→17:29)
--- NOTE | 2019-12-02 09:24 | PM.IMPN ---
Progress Note: A&P Assessment and Plan (1) Diabetes mellitus: Qualifiers: Diabetes mellitus complication status: with hyperglycemia Diabetes mellitus terminal superintendent insulin use: without intermediate use Diabetes mellitus type: type 2 Qualified Code(s): E11.65 - Type 2 diabetes mellitus with hyperglycemia Code(s): E11.9 - Type 2 diabetes mellitus without complications Status: Acute Assessment and Plan: New onset. He was recently diagnosed in September 2019 and was given an endocrinology appointment in December. He has not had any additional diabetes education or training. Blood sugars have been slowly improving. Most recent A1c is 10.5 (11/30/19). Last A1c in September was 8.6. Continue accuchecks ACHS, SSI, and hypoglycemic protocol Resume metformin given improvement in renal function. Consult has been placed to clinical staff educator, however unfortunately she is unavailable. Will ask nursing staff to provide diabetic education including monitoring blood glucose with glucometer. I have made an outpatient referral for diabetes education appointment. Continue diabetic diet Continue glipizide at 2.5 mg daily given renal and hepatic impairment with further uptitration as appropriate. I will hold off on initiating home insulin at this time and will defer to PCP or endocrinology. He has an endocrinology appointment scheduled in December and a PCP appointment on 12/03/19. (2) Acute renal failure: Qualifiers: Acute renal failure type: unspecified Qualified Code(s): N17.9 - Acute kidney failure, unspecified Code(s): N17.9 - Acute kidney failure, unspecified Status: Acute Assessment and Plan: At presentation, creatinine was 2.2. Improved to 1.4 today. Renal US revealed normal kidneys without hydronephrosis. DERRICK was felt to be secondary to osmotic diuresis from hyperglycemia. Nephrology consult has been placed and recommendations are appreciated. IV fluids have been discontinued today. Resume metformin and losartan Monitor renal function closely (3) Hyponatremia: Code(s): E87.1 - Hypo-osmolality and hyponatremia Status: Chronic Assessment and Plan: Chronic based on review of prior labs. Improved today to 134 today. He is asymptomatic. Nephrology is following and recommendations are appreciated. Cortisol and cortisol stimulation test were acceptable. TSH is wnl. (4) Transaminitis: Code(s): R74.0 - Nonspecific elevation of levels of transaminase and lactic acid dehydrogenase [LDH] Status: Acute Assessment and Plan: Etiology is unclear at this time. It is possible this is secondary to alcohol abuse, however patient denies extensive alcohol history and reports drinking 3 drinks per week typically. LFTs have been fluctuant but remain mildly elevated. RUQ US showed a normal liver. Platelets are normal. Hepatitis panel is negative. Continue to trend LFTs Hold simvastatin. Avoid acetaminophen. Consider GI consult if worsening. Plan to repeat LFTs one week following discharge. I believe he will benefit from outpatient GI follow up. I educated the patient on avoidance of alcohol (5) COPD (chronic obstructive pulmonary disease): Qualifiers: COPD type: unspecified COPD Qualified Code(s): J44.9 - Chronic obstructive pulmonary disease, unspecified Code(s): J44.9 - Chronic obstructive pulmonary disease, unspecified Status: Chronic Assessment and Plan: He is maintaining adequate oxygenation on room air. Continue bronchodilators. Monitor O2 saturation and provide supplemental oxygen as needed with goal O2 90% or above. (6) Hypothyroidism: Qualifiers: Hypothyroidism type: acquired Qualified Code(s): E03.9 - Hypothyroidism, unspecified Code(s): E03.9 - Hypothyroidism, unspecified Status: Chronic Assessment and Plan: Chronic. TSH is within normal limits. Co
[2019-12-02] MEDS: metFORMIN HCL 500 MG TABLET PO (09:59)
[2019-12-02 11:20] LABS: Glucose Point of Care 204 (65-105)
[2019-12-02] MEDS: CHOLECALCIFEROL 1,000 UNITS TABLET 2000 UNITS PO (11:32)
[2019-12-02] MEDS: INSULIN ASPART (*BKC) 100 UNITS/ML SUB-Q ×2 (11:35→17:30)
[2019-12-02 14:00] VITALS: BP 149/60; PULSE 58; RESP 17; TEMP 36.8; O2SAT 96
[2019-12-02 14:54] LABS: Alanine Aminotransferase 118 U/L (4-50); Alkaline Phosphatase 452 U/L (38-126); Aspartate Amino Transferase 117 U/L (17-59); Bilirubin,Total 2.3 mg/dL (0.2-1.3)
[2019-12-02 16:31] LABS: Glucose Point of Care 204 (65-105)
[2019-12-02 17:28] VITALS: PULSE 62
[2019-12-02] MEDS: MELATONIN 3 MG TABLET PO (20:50)
[2019-12-02 22:00] VITALS: BP 149/69; PULSE 65; RESP 18; TEMP 37.1; O2SAT 96
[2019-12-02 22:05] LABS: Glucose Point of Care 189 (65-105)
[2019-12-03 06:00] VITALS: BP 160/51; PULSE 69; RESP 18; TEMP 36.5; O2SAT 97
[2019-12-03 06:07] LABS: Alanine Aminotransferase 109 U/L (4-50); Albumin Level 3.1 g/dL (3.5-5.1); Alkaline Phosphatase 484 U/L (38-126); Anion Gap 7 mmol/L (8-16); Aspartate Amino Transferase 84 U/L (17-59); Bilirubin,Total 2.7 mg/dL (0.2-1.3); Blood Urea Nitrogen 18 mg/dL (9-20); Calcium 8.2 mg/dL (8.4-10.2); Carbon Dioxide 22 mmol/L (22-30); Chloride 105 mmol/L (98-107); Estimated CRCL calculation 54 ml/min; Estimated Glomerular Filt Rate 59; Glucose 165 mg/dL (75-110); Phosphorus 2.7 mg/dL (2.5-4.5); Potassium 3.7 mmol/L (3.4-5.0); Sodium 134 mmol/L (137-145)
[2019-12-03] MEDS: LEVOTHYROXINE SODIUM 112 MCG TABLET PO (06:21)
[2019-12-03] MEDS: glipiZIDE 2.5 MG TABLET PO (06:21)
[2019-12-03 07:42] LABS: Bilirubin Indirect 1.7 mg/dL (0-1.1)
--- NOTE | 2019-12-03 07:45 | PM.PNNEP ---
Progress Note: A&P Assessment and Plan (1) Abnormal results of kidney function studies: Code(s): R94.4 - Abnormal results of kidney function studies Status: Acute Assessment and Plan: the patient has an elevated creatinine. renal ultrasound is normal. Urine electrolytes are non pre renal. I suspect that the patient was pre renal due to osmotic diuresis from his high sugars over the last few weeks. creatinine is now normal. okay for discharge from the kidney standpoint. (2) Hyponatremia: Code(s): E87.1 - Hypo-osmolality and hyponatremia Status: Chronic Assessment and Plan: His sodium level is chronically low. Even as far back as 2011. this makes neuro/cancer etiology unlikely since these would have presented by now. TSH is okay. Cortrosyn stim is okay. cxr negative. no neurologic symptoms. (3) Transaminitis: Code(s): R74.0 - Nonspecific elevation of levels of transaminase and lactic acid dehydrogenase [LDH] Status: Acute Assessment and Plan: Evaluation is underway. (4) Diabetes mellitus: Qualifiers: Diabetes mellitus type: type 2 Diabetes mellitus half-way insulin use: without half-way use Diabetes mellitus complication status: with hyperglycemia Qualified Code(s): E11.65 - Type 2 diabetes mellitus with hyperglycemia Code(s): E11.9 - Type 2 diabetes mellitus without complications Status: Acute Assessment and Plan: This is a new diagnosis. Adjusting meds to get this under control Sugars are doing much better (5) Essential hypertension: Code(s): I10 - Essential (primary) hypertension Status: Chronic Assessment and Plan: Blood pressure is doing well. 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 Subjective Date/time seen: 12/03/19 07:45 Interval history: Jer is feeling okay. eating well off ivfs. Review of Systems Cardiovascular: Cardiovascular: Reports no additional cardiovascular complaints Respiratory: Respiratory: Reports no additional respiratory complaints Gastrointestinal: Gastrointestinal: Reports no additional gastrointestinal complaints Genitourinary: Genitourinary: Reports no additional male genitourinary complaints Exam Narrative: Exam Narrative: WDWN in NAD skin no rash or sq nodules head ncat lungs clear to ausc cor reg no rub abd BS+ nontender and soft ext no edema. Objective Data Vital Signs Vital Signs: Vital Signs - 24 hr 12/02/19 08:18 12/02/19 08:19 12/02/19 14:00 Temperature 36.8 C Pulse Rate 76 58 L Respiratory Rate 16 17 Blood Pressure 149/60 H Pulse Oximetry 97 96 12/02/19 17:28 12/02/19 22:00 12/03/19 06:00 Temperature 37.1 C 36.5 C Pulse Rate 62 65 69 Respiratory Rate 18 18 Blood Pressure 149/69 H 160/51 H Pulse Oximetry 96 97 Intake/Output Intake/Output: Intake & Output 11/30/19 12/01/19 12/02/19 12/03/19 23:59 23:59 23:59 23:59 Intake Total 3470 3220 1550 800 Output Total 900 1200 1750 1100 Balance 2570 2020 -200 -300 Meds/Results Medications: Active Medications Generic Name Dose Route Start Last Admin Trade Name Freq PRN Reason Stop Dose Admin Albuterol 1 puff 11/29/19 05:24 Proventil Hfa INHALATION Q4H PRN shortness of breath or wheezing Apixaban 5 mg 11/29/19 09:00 12/02/19 17:29 Eliquis PO 5 mg BID JENNIFER Administration Dextrose 12.5 gm 11/28/19 23:12 Dextrose 50% Syringe I
[2019-12-03 07:57] LABS: Glucose Point of Care 164 (65-105)
[2019-12-03 07:58] VITALS: PULSE 60
[2019-12-03] MEDS: metFORMIN HCL 500 MG TABLET PO (07:58)
[2019-12-03] MEDS: METOPROLOL TARTRATE 50 MG TAB 100 MG PO (07:58)
[2019-12-03] MEDS: LOSARTAN POTASSIUM 25 MG TABLET PO (07:58)
[2019-12-03] MEDS: APIXABAN 5 MG TABLET PO (07:59)
[2019-12-03 11:38] LABS: Glucose Point of Care 218 (65-105)
[2019-12-03 12:02] LABS: Complement Total CH50 >60 U/mL (31-60)
--- NOTE | 2019-12-03 12:03 | PM.DS ---
DS: Admitting Diagnosis Admitting Diagnosis Admitting Diagnosis: acute on chronic renal failure, hyponatremia, DS: Discharge Diagnosis Discharge Diagnosis (1) Diabetes mellitus: Qualifiers: Diabetes mellitus type: type 2 Diabetes mellitus skilled nursing insulin use: without long term care pharmacist use Diabetes mellitus complication status: with hyperglycemia Qualified Code(s): E11.65 - Type 2 diabetes mellitus with hyperglycemia Code(s): E11.9 - Type 2 diabetes mellitus without complications Status: Acute Assessment and Plan: New onset. He was recently diagnosed in September 2019 and was given an endocrinology appointment in December. He has not had any additional diabetes education or training. Most recent A1c is 10.5 (11/30/19). Last A1c in September was 8.6. He was started on glipizide at 2.5 mg daily given renal and hepatic impairment with further uptitration as appropriate per PCP or business services coordinator. metformin initially held due to DERRICK was resumed. I chose to defer initiating home insulin at this time as he will be evaluated by endocrinology. He should monitor his blood sugars with meals and at night and bring a log to his business services coordinator to evaluate trends with oral hypoglycemics. I have referred him to outpatient Diabetes Education and he will be called with an appointment. We discussed diabetic diet. He has follow-up appointment scheduled with his PCP on day of discharge. (2) Acute renal failure: Qualifiers: Acute renal failure type: unspecified Qualified Code(s): N17.9 - Acute kidney failure, unspecified Code(s): N17.9 - Acute kidney failure, unspecified Status: Acute Assessment and Plan: At presentation, creatinine was 2.2. Renal US revealed normal kidneys without hydronephrosis. DERRICK was felt to be secondary to osmotic diuresis from hyperglycemia. He was seen in consultation by Nephrology. Renal function improved and creatinine was 1.2 at time of discharge. Repeat BMP in 1 week. (3) Hyponatremia: Code(s): E87.1 - Hypo-osmolality and hyponatremia Status: Chronic Assessment and Plan: Chronic based on review of prior labs and asymptomatic. Cortisol and cortisol stimulation test were acceptable. TSH is wnl. possibly secondary to hyperglycemia. Sodium levels improved. Repeat BMP in 1 week. (4) Transaminitis: Code(s): R74.0 - Nonspecific elevation of levels of transaminase and lactic acid dehydrogenase [LDH] Status: Acute Assessment and Plan: Etiology is unclear at this time. It is possible this is secondary to alcohol abuse, however patient denies extensive alcohol history and reports drinking 3 drinks per week typically. LFTs were fluctuant but remained mildly elevated. RUQ US showed a normal liver. Platelets normal. Hepatitis panel negative. His simvastatin was held. He was counseled to avoid acetaminophen prior to repeat labs. He will repeat LFTs in 1 week. He may benefit from GI referral based on results. Recommended to avoid alcohol prior to repeat labs. (5) COPD (chronic obstructive pulmonary disease): Qualifiers: COPD type: unspecified COPD Qualified Code(s): J44.9 - Chronic obstructive pulmonary disease, unspecified Code(s): J44.9 - Chronic obstructive pulmonary disease, unspecified Status: Chronic Assessment and Plan: Stable on room air. He did not require supplemental oxygen. Continue bronchodilators. (6) Hypothyroidism: Qualifiers: Hypothyroidism type: acquired Qualified Code(s): E03.9 - Hypothyroidism, unspecified Code(s): E03.9 - Hypothyroidism, unspecified Status: Chronic Assessment and Plan: TSH was within normal limits. Continue levothyroxine PO. (7) Paroxysmal atrial fibrillation: Code(s): I48.0 - Paroxysmal atrial fibrillation Status: Chronic Assessment and Plan: Rate was controlled. Continue metoprolol and Eliquis
[2019-12-03 23:13] LABS: Albumin 2.9 g/dL (3.8-4.8); Alpha 1 Globulin 0.3 g/dL (0.2-0.3); Alpha 2 Globulin 0.8 g/dL (0.5-0.9); Beta 1 Globulin 0.5 g/dL (0.4-0.6); Gamma Globulin 0.8 g/dL (0.8-1.7); Protein, Total 5.8 g/dL (6.1-8.1)
[2019-12-05 07:00] LABS: Kappa\\Lambda Light Chains 2.43 (0.26-1.65); Lambda Light Chain 23.9 mg/L (5.7-26.3)
== END 2019-12-03 12:52 | disposition home or self-care (01) | DRG 683 ==
LOC: ANHED 22:24 → ANH2MED 23:15
PROVIDERS: Emergency Medicine; Internal Medicine Nephrology; Physician Assistant; Admitting Provider Family Medicine; Emergency Provider General Practice; PCP Family Medicine; Visit Provider Internal Medicine
DX: N17.9 Acute kidney failure, unspecified (principal); E87.1 Hypo-osmolality and hyponatremia; T50.2X5A Adverse effect of carbonic-anhydrase inhibitors, benzothiadiazides and other diuretics, initial encounter; E11.65 Type 2 diabetes mellitus with hyperglycemia; R74.0 Nonspecific elevation of levels of transaminase and lactic acid dehydrogenase [LDH]; F10.10 Alcohol abuse, uncomplicated; J44.9 Chronic obstructive pulmonary disease, unspecified; E03.9 Hypothyroidism, unspecified; I48.0 Paroxysmal atrial fibrillation; I10 Essential (primary) hypertension; I25.10 Atherosclerotic heart disease of native coronary artery without angina pectoris; Z95.1 Presence of aortocoronary bypass graft; I25.2 Old myocardial infarction; Z87.891 Personal history of nicotine dependence; Z79.01 Long term (current) use of anticoagulants; E78.5 Hyperlipidemia, unspecified
CPT/HCPCS: 36415; 71045; 76705; 76775; 80053; 80069; 80074; 81001; 82140; 82247; 82533; 82550; 82570; 83036; 83735; 83883; 84075; 84100; 84155; 84156; 84165; 84300; 84443; 84450; 84460; 85025; 85027; 85610; 85652; 85730; 85999; 86038; 86160; 86162; 93005; 96361; 96374; 96375; 97161; 97165; 99285; A9270; G0378; J0834; J1815; J2405; J7030; J7040

== ENCOUNTER 2019-12-27 11:36 | Outpatient (CLI) | payer OTHER, SELFPAY ==
[2019-12-27 12:14] LABS: Hematocrit 35.8 % (42.0-52.0); Hemoglobin 12.4 g/dL (14.0-18.0); Mean Corpuscular HGB Conc 34.6 g/dl (32-36); Mean Corpuscular Volume 89.5 fl (80-100); Mean Platelet Volume 11.7 fl (7.4-10.4); Platelet Count Result 322 k/mm3 (150-375); White Blood Count 7.8 K/mm3 (4.5-10.0)
[2019-12-27 12:24] LABS: INR 1.3; Prothrombin Time 16.2 Seconds (11.1-14.7)
[2019-12-27 12:27] LABS: Alanine Aminotransferase 171 U/L (4-50); Albumin Level 3.7 g/dL (3.5-5.1); Alkaline Phosphatase 604 U/L (38-126); Anion Gap 12 mmol/L (8-16); Aspartate Amino Transferase 192 U/L (17-59); Bilirubin,Total 13.7 mg/dL (0.2-1.3); Blood Urea Nitrogen 14 mg/dL (9-20); Calcium 9.4 mg/dL (8.4-10.2); Carbon Dioxide 22 mmol/L (22-30); Chloride 104 mmol/L (98-107); Estimated Glomerular Filt Rate > 60; Glucose 171 mg/dL (75-110); Potassium 3.6 mmol/L (3.4-5.0); Sodium 138 mmol/L (137-145)
[2019-12-27 12:37] LABS: Immunoglobulin G 1058 mg/dL (700-1600); Immunoglobulin M 50 mg/dL (40-230)
[2019-12-27 12:52] LABS: Iron 126 ug/dL (49-181)
[2019-12-27 13:01] LABS: Percent Iron Saturation 43 % (20-50)
[2019-12-31 10:33] LABS: Actin Antibody (IgG) <20 U (<20)
[2020-01-01 21:46] LABS: Mitochondrial (M2) Ab (IgG) <=20.0 U (<=20.0)
[2020-01-01 23:29] LABS: Ceruloplasmin 66 mg/dL (18-36)
[2020-01-03 14:52] LABS: ALT 130 U/L (9-46); Alpha-2-Macroglobulin 385 mg/dL (106-279); Apolipoprotein A1 39 mg/dL (94-176); Fibrosis Stage F4; GGT 1400 U/L (3-70); Haptoglobin 299 mg/dL (43-212); Necroinflammat Act Grade A3; Total Bilirubin 13.3 mg/dL (0.2-1.2)
== END 2019-12-27 11:37 | disposition home or self-care (01) ==
PROVIDERS: PCP Family Medicine; Visit Provider Internal Medicine Gastroenterology
DX: R17 Unspecified jaundice (principal); R74.8 Abnormal levels of other serum enzymes
CPT/HCPCS: 36415; 80053; 81596; 82104; 82390; 82728; 82784; 83516; 83520; 83540; 83550; 85027; 85610

== ENCOUNTER 2020-01-07 07:32 | Outpatient (CLI) | payer OTHER, SELFPAY ==
--- NOTE | ~2020-01-07 | MR_ITS ---
EXAMINATION: MR MRCP wo/w con/w 3D wo ind DATE: 01/07/2020 09:26 INDICATION: Abnormal levels of other serum enzymes TECHNIQUE: Magnetic resonance imaging (MRI) of the abdomen was performed without and with intravenous contrast. Sequences included coronal T2-weighted SS-FSE ARC, coronal T2-weighted FS SS-FSE, coronal T2-weighted 2D FS FIESTA, Water:Coronal LAVA-Flex, sagittal T2-weighted SS-FSE ARC, axial SSFSE ARC, axial 3D DualEcho, axial DWI B=600, axial T1-weighted LAVA, FAT:Coronal LAVA-Flex, and coronal in and opposed phase LAVA-Flex. Thick-slab T2-weighted FRFSE-XL images were obtained for magnetic resonance cholangiopancreatography (MRCP). Maximum intensity projection 3-D reconstructions of the volumetric data were created by the technologist. Postcontrast sequences included a time course of axial T1-weig hted LAVA, FAT:Coronal LAVA-Flex, coronal in and opposed phase LAVA-Flex, and Water:Coronal LAVA-Flex . COMPARISON: None. CONTRAST: Multihance, 20 cc FINDINGS: ABDOMEN MRI: There is an approximately 1.4 cm nodule of the right lung. The heart size is normal. The re is a 1.8 cm cyst in the liver dome. There are at least twelve T1 isointense, slightly T2 hyperinte nse, hypoenhancing lesions scattered throughout the liver which measure up to 8 mm. Although limited by respiratory motion artifact, some demonstrate restricted diffusion. The gallbladder is distended. There is a 2 cm stone in the gallbladder. No gallbladder wall thickening or pericholecystic fluid are identified. The spleen and adrenal glands are normal. There is a 3 mm cyst in the left kidney. The r ight kidney is unremarkable. There is an approximately 2.1 x 2.7 cm infiltrating mass in the head of the pancreas. There is atrophy in the body and the tail of the pancreas. A periportal lymph node radha cent to the head of the pancreas measures 14 mm in short axis. There are no dilated loops of bowel. ABDOMEN MRCP: There is intrahepatic and extra hepatic biliary dilatation which continues to the level of the pancreatic head mass. The common bile duct measures up to 15 mm. The pancreatic duct is dilat ed measuring up to 10 mm. IMPRESSION: 1. Pancreatic head mass causing intrahepatic and extrahepatic biliary dilatation and pancreatic ducta l dilatation concerning for adenocarcinoma. ERCP is recommended. 2. Indeterminate right lung nodule, further evaluation with CT of the chest is recommended. 3. Enlarged periportal lymph node, reactive versus metastatic. 4. Multiple small liver lesions concerning for metastatic disease. 5. Cholelithiasis. Reviewed, dictated and finalized at location A. IMPRESSION: 1. Pancreatic head mass causing intrahepatic and extrahepatic biliary dilatatio n and pancreatic ductal dilatation concerning for adenocarcinoma. ERCP is recom mended. 2. Indeterminate right lung nodule, further evaluation with CT of the chest is recommended. 3. Enlarged periportal lymph node, reactive versus metastatic. 4. Multiple small liver lesions concerning for metastatic disease. 5. Cholelithiasis.
== END 2020-01-07 07:33 | disposition home or self-care (01) ==
PROVIDERS: PCP Family Medicine; Visit Provider Internal Medicine Gastroenterology
DX: R17 Unspecified jaundice (principal); R74.8 Abnormal levels of other serum enzymes; K80.20 Calculus of gallbladder without cholecystitis without obstruction; R91.8 Other nonspecific abnormal finding of lung field
CPT/HCPCS: 74183; 76376; A9577

== ENCOUNTER 2020-01-13 12:06 | Outpatient (CLI) | payer OTHER, SELFPAY ==
[2020-01-13 13:09] LABS: Alanine Aminotransferase 179 U/L (4-50); Albumin Level 3.8 g/dL (3.5-5.1); Alkaline Phosphatase 855 U/L (38-126); Anion Gap 12 mmol/L (8-16); Aspartate Amino Transferase 266 U/L (17-59); Bilirubin,Total 16.7 mg/dL (0.2-1.3); Blood Urea Nitrogen 13 mg/dL (9-20); Calcium 9.8 mg/dL (8.4-10.2); Carbon Dioxide 24 mmol/L (22-30); Chloride 102 mmol/L (98-107); Estimated Glomerular Filt Rate > 60; Glucose 143 mg/dL (75-110); Sodium 138 mmol/L (137-145)
[2020-01-16 13:42] LABS: CMV IgM Antibody <30.00 AU/mL (<30.00)
== END 2020-01-13 12:07 | disposition home or self-care (01) ==
PROVIDERS: PCP Family Medicine; Visit Provider Internal Medicine Gastroenterology
DX: R17 Unspecified jaundice (principal); R74.8 Abnormal levels of other serum enzymes
CPT/HCPCS: 36415; 80053; 86645

== ENCOUNTER 2020-01-17 14:45 | Outpatient (CLI) | payer OTHER, SELFPAY ==
[2020-01-22 04:28] LABS: CA 19-9 7908 U/mL (<34)
== END 2020-01-17 14:46 | disposition home or self-care (01) ==
PROVIDERS: PCP Family Medicine; Visit Provider Internal Medicine Gastroenterology
DX: C25.9 Malignant neoplasm of pancreas, unspecified (principal); K86.89 Other specified diseases of pancreas; R79.89 Other specified abnormal findings of blood chemistry
CPT/HCPCS: 36415; 86301

== ENCOUNTER 2020-01-21 03:00 | Outpatient (CLI) | payer OTHER, SELFPAY ==
[2020-01-21 18:17] LABS: SARS-CoV-2 RNA PCR Negative
== END 2020-01-21 03:01 | disposition home or self-care (01) ==
LOC: ANHCOVIDDT 03:00
PROVIDERS: PCP Family Medicine; Visit Provider Internal Medicine Gastroenterology
DX: Z01.812 Encounter for preprocedural laboratory examination (principal); Z20.828 Contact with and (suspected) exposure to other viral communicable diseases
CPT/HCPCS: 87635; C9803; U0003

== ENCOUNTER 2020-01-23 00:27 | Day surgery (SDC) | payer OTHER, SELFPAY ==
--- NOTE | 2020-01-20 10:28 | PC.NURSE ---
01/20/2020 1025 REVIEWED THE FOLLOWING WITH DR. NICOLAS: EKG FROM 11/28/2019, ECHO FROM 09/02/2019, CBC FROM 12/27/2019, PT/INR FROM 12/27/2019, BMP FROM 01/13/2020. AFTER REVIEW, DR. NICOLAS STATED THAT ONLY NEED TO DRAW PT/PTT/INR ON DAY OF PROCEDURE AND THAT RECENT LABS AND TESTS RESULTS WILL SUFFICE THE ANESTHESIOLOGY PRE-OP ORDERS. DC GUERRERO
[2020-01-20 15:09] VITALS: BMI 35.9
[2020-01-23] VITALS (8 sets, daily range): BP systolic 99–143; BP diastolic 49–85; PULSE 78–98; RESP 16–25; TEMP 35.7–36.6; O2SAT 97–100; BMI 34.7
--- NOTE | ~2020-01-23 | XR_ITS ---
EXAMINATION: XR ERCP DATE: 01/23/2020 13:23 INDICATION: Pancreatic head mass TECHNIQUE: Six intraoperative fluoroscopic images obtained during endoscopic retrograde cholangiopanc reatography (ERCP) are submitted for review. Total fluoroscopic time was 392.3 seconds. COMPARISON: None. FINDINGS: Fluoroscopic images demonstrate a dilated common bile duct with placement of a biliary sten t in expected position. IMPRESSION: 1. Dilated common bile duct with placement of a biliary stent in expected position. Please refer to t he ERCP procedure note for additional details. Reviewed, dictated and finalized at location A. IMPRESSION: 1. Dilated common bile duct with placement of a biliary stent in expected posit ion. Please refer to the ERCP procedure note for additional details.
--- NOTE | 2020-01-23 10:46 | WPDANESEPPF ---
Anes - Initial Pre Proc Eval Procedure: Operation Date: 01/23/20 11:30 Proposed Procedures p Endoscopic Retro Cholangiopancreatogram - Prateek Kaur MD Date/Time: 01/23/20 10:46 Surgeon: Prateek Kaur MD Pre Op Diagnosis: Obstruction Of Bile Duct/ Pancreatic Mass Patient Data Age: 79 Gender: M Height: 5 ft 8 in Weight: 103.6 kg Last Vital Signs Temp 97.7 F 01/23/20 10:27 Pulse 98 01/23/20 10:27 Resp 16 01/23/20 10:27 BP 114/61 01/23/20 10:27 Pulse Ox 97 01/23/20 10:27 Allergies Allergy/AdvReac Type Severity Reaction Status Date / Time aspartame Allergy Severe SEIZURE Verified 01/23/20 10:26 Home Medications Medication Instructions Recorded Confirmed Type cholecalciferol (vitamin D3) 50 2,000 unit PO DAILY 02/25/19 01/20/20 History mcg (2,000 unit) tablet levothyroxine 112 mcg tablet 112 mcg PO DAILY #90 tablet 02/25/19 01/20/20 Rx Eliquis 5 mg PO BID 09/02/19 01/20/20 History metoprolol tartrate 50 mg tablet 100 mg PO BID #360 tablet 11/19/19 01/20/20 Rx albuterol sulfate 90 mcg/actuation 1 inhalation INHALATION Q4H PRN 11/26/19 01/20/20 Rx aerosol inhaler #8.5 gm losartan 25 mg tablet 25 mg PO DAILY #90 tablet 11/26/19 01/20/20 Rx blood-glucose meter [OneTouch #1 each 12/03/19 01/15/20 Rx Verio Meter] blood sugar diagnostic #100 each 12/26/19 01/15/20 Rx lancets 33 gauge #100 each 12/26/19 01/15/20 Rx glipizide 5 mg tablet 5 mg PO DAILY #90 tablet 01/15/20 01/20/20 Rx simvastatin 40 mg PO DAILY 01/20/20 01/20/20 History Patient hx anesthesia problems: none Family hx anesthesia problems: none PMFSH Past Medical History Medical History (Updated 01/17/20 @ 14:28 by Prateek Kaur MD) Abnormal results of kidney function studies Acute kidney injury Chronic hyponatremia Colon polyps COPD (chronic obstructive pulmonary disease) Coronary artery disease With history of [place]. Status post three-vessel CABG in 2011. Daily consumption of alcohol Dyslipidemia Elevated liver enzymes Essential hypertension Hyperbilirubinemia Hypothyroidism Insomnia Jaundice Left carotid artery occlusion Liver lesion Obstructive jaundice Paroxysmal atrial fibrillation Status post cardioversion in October 2016. 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 Type 2 diabetes mellitus without complications Weight loss Surgical History Surgical History History of coronary artery bypass graft x 3 (~2011) History of inguinal hernia repair History of nasal septoplasty History of umbilical hernia repair Family History Family History Father Carcinoma of colon Acute myocardial infarction Late 30s. Mother Cerebrovascular accident Social History Social History Social History: The patient is and lives in his own apartment in [place] with his cat. 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 He is a former smoker, and smoked as many as 3 to 4 packs of cigarettes per day for several years, and thereafter smoked 1 to 2 packs of cigarettes a day for 20+ years before quitting in 1985. He enjoys going to the [employer], typically 6 times per week, in which he typically will drink 3 beers. He had not been to the [employer] for the past month due to long-term in place orders; this week (09/16/19) he has resumed going to the [employer], he typically has lunch there twice a week. He has no history of alcohol withdrawal signs or symptoms. Denies illicit drug use. He designates his brother Jf and his son Diego as his surrogate decision makers and he wishes to be a full code. Smoking packs per day: 4 Smoking cigarettes per day: 80.0 Years smoked: 20 Smoking pack-years: 80.00 Smoking status: Former smoker Tobacco type: cigarettes Second hand tobacco smoke expo
[2020-01-23] MEDS: LACTATED RINGERS 1,000 ML 150 ML IV CONT (10:51)
[2020-01-23 10:54] LABS: Glucose Point of Care 129 (65-105)
[2020-01-23 11:28] LABS: INR 1.2; Partial Thromboplastin Time 38.5 SECONDS (22.3-36.8); Prothrombin Time 15.2 Seconds (11.1-14.7)
[2020-01-23] MEDS: INDOMETHACIN 50 MG SUPP.RECT 100 MG RECTAL (12:01)
--- NOTE | 2020-01-23 14:24 | SUR.OPER ---
Passenger Baggage [employer] WallFlex Biliary Stent System Lot#[id number] Exp: 2021-12-31. Size:10mm x 60mm [place] [employer] Advanix Pancreatic Stent Lot#[id number] Exp: 2020-05-27 Size: 4F x 5cm
== END 2020-01-23 14:45 | disposition home or self-care (01) ==
PROVIDERS: Anesthesiology; PCP Family Medicine; Visit Provider Internal Medicine Gastroenterology
PROC: (CPT 43260; principal; 2020-01-23 11:30)
DX: K83.1 Obstruction of bile duct (principal); K86.89 Other specified diseases of pancreas; R94.5 Abnormal results of liver function studies; R17 Unspecified jaundice; R63.4 Abnormal weight loss; E87.1 Hypo-osmolality and hyponatremia; J44.9 Chronic obstructive pulmonary disease, unspecified; I25.10 Atherosclerotic heart disease of native coronary artery without angina pectoris; I10 Essential (primary) hypertension; E11.9 Type 2 diabetes mellitus without complications; Z83.71 Family history of colonic polyps; R74.8 Abnormal levels of other serum enzymes; R79.89 Other specified abnormal findings of blood chemistry; Z86.010 Personal history of colon polyps; Z95.1 Presence of aortocoronary bypass graft
CPT/HCPCS: 43260; 36415; 74329; 85610; 85730; 88305; A9270; C2625; J0330; J2370; J2405; J2704; J7120; Q9966

== ENCOUNTER 2020-01-28 14:51 | Outpatient (CLI) | payer OTHER, SELFPAY ==
[2020-01-28 15:22] LABS: Basophils Absolute Auto 0.1 K/mm3 (0.0-0.1); Basophils Percent Auto 1.2 % (0.2-1.2); Eosinophils Absolute Auto 0.4 K/mm3 (0-0.3); Eosinophils Percent Auto 3.8 % (0-4.4); Hematocrit 37.2 % (42.0-52.0); Hemoglobin 12.3 g/dL (14.0-18.0); Immature Granulocyte Absolute 0.07 K/mm3 (0.00-0.031); Immature Granulocyte Percent A 0.8 % (0-0.5); Lymphocytes Absolute Auto 1.43 K/mm3 (0.9-3.2); Lymphocytes Percent Auto 15.5 % (18.3-44.2); Mean Corpuscular HGB Conc 33.1 g/dl (32-36); Mean Corpuscular Hemoglobin 32.2 pg (26-34); Mean Corpuscular Volume 97.4 fl (80-100); Mean Platelet Volume 11.8 fl (7.4-10.4); Monocytes Absolute Auto 0.9 K/mm3 (0.1-0.6); Monocytes Percent Auto 9.8 % (2.6-8.5); Neutrophils Absolute Auto 6.3 K/mm3 (1.3-6.7); Neutrophils Percent Auto 68.9 % (45.5-73.1); Platelet Count Result 372 k/mm3 (150-375); Red Blood Count 3.82 M/mm3 (4.6-6.20); Red Cell Distribution Width 14.6 % (11.5-14.5); White Blood Count 9.2 K/mm3 (4.5-10.0)
[2020-01-28 15:55] LABS: Platelet Estimate Adequate (Adequate); Stomatocytes 1+ (NORMAL)
[2020-01-28 16:31] LABS: Alanine Aminotransferase 117 U/L (4-50); Albumin Level 3.9 g/dL (3.5-5.1); Alkaline Phosphatase 473 U/L (38-126); Anion Gap 13 mmol/L (8-16); Aspartate Amino Transferase 150 U/L (17-59); Bilirubin,Total 6.4 mg/dL (0.2-1.3); Blood Urea Nitrogen 16 mg/dL (9-20); Calcium 9.5 mg/dL (8.4-10.2); Carbon Dioxide 21 mmol/L (22-30); Chloride 106 mmol/L (98-107); Estimated Glomerular Filt Rate > 60; Glucose 141 mg/dL (75-110); Potassium 4.3 mmol/L (3.4-5.0); Sodium 140 mmol/L (137-145)
[2020-01-31 06:59] LABS: CA 19-9 11736 U/mL (<34)
== END 2020-01-28 14:52 | disposition home or self-care (01) ==
LOC: ANHLAB 14:53
PROVIDERS: PCP Family Medicine; Visit Provider Internal Medicine Hematology & Oncology
DX: C25.9 Malignant neoplasm of pancreas, unspecified (principal)
CPT/HCPCS: 36415; 80053; 85025; 86301

== ENCOUNTER 2020-02-05 03:45 | Outpatient (CLI) | payer OTHER, SELFPAY ==
[2020-02-05 19:05] LABS: SARS-CoV-2 RNA PCR Negative
== END 2020-02-05 03:46 | disposition home or self-care (01) ==
LOC: ANHCOVIDDT 03:46
PROVIDERS: Visit Provider Internal Medicine Hematology & Oncology
DX: Z01.812 Encounter for preprocedural laboratory examination (principal); Z20.828 Contact with and (suspected) exposure to other viral communicable diseases
CPT/HCPCS: 87635; C9803; G0109; U0003

== ENCOUNTER 2020-02-07 07:59 | Outpatient (CLI) | payer OTHER, SELFPAY ==
[2020-01-30 10:23] VITALS: BMI 35.3
[2020-02-07] VITALS (11 sets, daily range): BP systolic 121–162; BP diastolic 62–78; PULSE 64–97; RESP 16–20; O2SAT 95–100
--- NOTE | ~2020-02-07 | CT_ITS ---
EXAMINATION: CT biopsy lung DATE: 02/07/2020 11:28 INDICATION: Right lung nodule. TECHNIQUE: The procedure including the risks, benefits, and alternatives and possibility of chest tub e placement were discussed with the patient. Risks discussed included infection, approximately 1/20 r isk of symptomatic hemorrhage beyond mild hemoptysis, approximately 1/3 risk of pneumothorax, approxi mately 1/10 risk of pneumothorax severe enough to warrant chest tube placement, and rarely . The patient understood the risks and agreed to proceed. The patient was placed on his left side. The sk in overlying the right chest was prepped and draped in sterile fashion. Anesthetic was administered with 1% lidocaine subcutaneously. A 19 gauge outer needle was advanced under CT guidance to the lesi on of interest. A 20 gauge core biopsy needle was then used to obtain core biopsy specimens. The need le was removed and the entry site was cleaned and dressed. The mA was adjusted according to patient s ize. Iterative reconstruction technique was employed. The dose-length product was 479.13 mGy-cm. The re were no immediate complications. FINDINGS: CT images demonstrate the outer needle tip adjacent to a 1.8 cm nodule in right lower lobe. IMPRESSION: 1. CT-guided core needle biopsy of a nodule in right lung lower lobe. Reviewed, dictated and finalized at location A.
--- NOTE | ~2020-02-07 | XR_ITS ---
EXAMINATION: XR chest 1V DATE: 02/07/2020 11:19 INDICATION: Right lung nodule status post percutaneous biopsy. TECHNIQUE: A single frontal view of the chest was obtained. COMPARISON: Chest CT 02/07/2020 FINDINGS: There is mild atelectasis and scarring in the lower lung zones. No pleural effusion or pneu mothorax. The heart size is normal. Median sternotomy wires and mediastinal surgical clips are seen, likely from prior coronary artery bypass grafting. There is a prominent left paracardial fat pad. IMPRESSION: 1. Mild atelectasis and scarring in the lower lung zones. Reviewed, dictated and finalized at location A.
--- NOTE | ~2020-02-07 | XR_ITS ---
XR chest 1V portable 02/07/2020 14:20 Indication: Post lung biopsy. Right lung mass. Procedure: AP portable chest Comparison: Comparison to multiple prior studies sequentially, with oldest reviewed study dated 09/01. Findings: Status post median sternotomy for CABG. There is a mass overlying the right hilum, suspicio us for malignancy. No pneumothorax identified post biopsy. There is chronic blunting of the left late ral costophrenic recess. No focal pneumonia or edema. Impression: 1: No pneumothorax identified post biopsy. 2: Ill-defined mass overlying the right hilum, suspicious for malignancy. Reviewed, dictated and finalized at location B. Impression: 1: No pneumothorax identified post biopsy. 2: Ill-defined mass overlying the right hilum, suspicious for malignancy.
--- NOTE | ~2020-02-07 | CT_ITS ---
EXAMINATION:CT chest wo con DATE: 02/07/2020 08:49 INDICATION: Lung nodule. TECHNIQUE: Computed tomography (CT) of the chest was performed without intravenous contrast. Automate d exposure control and iterative reconstruction technique were employed. The dose-length product (DLP ) was 210.23 mGy-cm. COMPARISON: MRCP 01/07/2020 FINDINGS: There are subpleural bands in the lower lobes and lingula. There is a 1.8 cm nodule in righ t lower lobe. There are greater than 20 scattered nodules in the lungs measuring up to 6 mm. Calcifie d bilateral lung nodules are consistent with old granulomatous disease. No pleural effusion. The hear t size is normal. There are coronary artery calcifications. There are calcifications of the aortic va lve. There are changes of coronary artery bypass grafting. No pericardial effusion. Partially visuali zed is a permanent biliary stent. Partially visualized is a pancreatic duct stent. Pneumobilia is not ed. There is a 1.6 cm cyst in the liver. There is severe thoracic spondylosis. IMPRESSION: 1. Pulmonary nodules, consistent with metastatic disease. Reviewed, dictated and finalized at location A.
--- NOTE | ~2020-02-07 | XR_ITS ---
EXAMINATION: XR chest 1V portable DATE: 02/07/2020 12:15 INDICATION: One hour post lung biopsy. TECHNIQUE: frontal view of the chest was obtained. COMPARISON: Chest radiograph dated 02/07/2020 FINDINGS: Small left paracardial fat pad with mild atelectasis/scarring at the lateral left lung base. Right nakita ng remains clear with no appreciable pulmonary hemorrhage at the site of biopsy. No pleural effusion or pneumothorax. The cardiomediastinal silhouette is normal. Median sternotomy wires and mediastinal surgical clips are seen, likely from prior coronary artery bypass grafting. IMPRESSION: 1. Mild left basilar atelectasis/scarring. No pneumothorax or pleural effusion. Reviewed, dictated and finalized at location A.
--- NOTE | ~2020-02-07 | US_ITS ---
EXAMINATION: US abdomen limited DATE: 02/07/2020 10:55 INDICATION: Liver masses. TECHNIQUE: Multiple grayscale and Doppler ultrasound images of the abdomen were obtained. COMPARISON: Ultrasound 11/30/2019, MRCP 01/07/2020 FINDINGS: The liver masses are not visible. IMPRESSION: 1. The liver masses seen by MRCP are not visible. No liver biopsy could be performed. A lung nodule w ill be biopsied by CT. Reviewed, dictated and finalized at location A. IMPRESSION: 1. The liver masses seen by MRCP are not visible. No liver biopsy could be perf ormed. A lung nodule will be biopsied by CT.
[2020-02-07 08:49] LABS: Mean Platelet Volume 11.4 fl (7.4-10.4); Platelet Count Result 351 k/mm3 (150-375)
[2020-02-07 08:57] LABS: INR 1.1; Prothrombin Time 13.6 Seconds (11.1-14.7)
--- NOTE | 2020-02-07 15:05 | SUR.PHASEII ---
[address] JANSEN AFTER LAST CHEST XRAY, PT OK FOR DISCHARGE PER HIM AND ANESTHESIA CRITERIA
== END 2020-02-07 15:03 | disposition home or self-care (01) ==
PROVIDERS: Radiology Diagnostic Radiology; PCP Family Medicine; Visit Provider Internal Medicine Hematology & Oncology
DX: R91.1 Solitary pulmonary nodule (principal); C25.9 Malignant neoplasm of pancreas, unspecified; R91.8 Other nonspecific abnormal finding of lung field
CPT/HCPCS: 32405; 36415; 71045; 71250; 76705; 77012; 85049; 85610; 88305; 88342

== ENCOUNTER 2020-03-05 09:30 | Outpatient (RCR) | payer OTHER, SELFPAY ==
[2019-12-25 12:49] VITALS: BMI 37.1
[2020-03-05 09:20] VITALS: BMI 36.4
[2020-03-05 09:25] VITALS: BMI 36.4
== END 2020-03-09 11:49 | disposition home or self-care (01) ==
LOC: ANHDMC 09:30
PROVIDERS: PCP Family Medicine; Visit Provider Nurse Practitioner
DX: E11.9 Type 2 diabetes mellitus without complications (principal); Z71.3 Dietary counseling and surveillance; Z71.89 Other specified counseling
CPT/HCPCS: 97802; 97803; G0108; G0109

== ENCOUNTER 2020-06-09 10:45 | Outpatient (RCR) | payer OTHER, SELFPAY | END 2020-06-09 12:01 | disposition home or self-care (01) | LOC: ANHDMC 10:45 | PROVIDERS: PCP Family Medicine; Visit Provider Nurse Practitioner | DX: E11.65 Type 2 diabetes mellitus with hyperglycemia (principal); Z71.89 Other specified counseling | CPT/HCPCS: G0108 ==

== ENCOUNTER 2020-10-10 11:33 | Emergency (ER) | payer OTHER, MEDICARE, SELFPAY ==
[2020-10-10] VITALS (21 sets, daily range): BP systolic 111–151; BP diastolic 59–89; PULSE 73–108; RESP 18–39; TEMP 36.2–36.7; O2SAT 88–98
--- NOTE | ~2020-10-10 | XR_ITS ---
XR chest 1V portable 10/10/2020 12:07 Indication: Dyspnea. There are symptoms. Procedure: AP portable chest Comparison: Comparison to multiple prior studies sequentially, with oldest reviewed study dated 11/27. Findings: Extensive patchy bilateral airspace disease, compatible with pneumonia. Status post median sternotomy for CABG. No significant pleural effusion or pneumothorax. No acute osseous abnormality. T here are degenerative changes of the left shoulder. Impression: 1: Extensive patchy bilateral airspace disease, compatible with pneumonia. Reviewed, dictated and finalized at location A. Impression: 1: Extensive patchy bilateral airspace disease, compatible with pneumonia.
--- NOTE | ~2020-10-10 | CT_ITS ---
EXAMINATION: CT brain wo con DATE: 10/10/2020 11:45 INDICATION: Stroke. Neurologic symptoms. TECHNIQUE: Computed tomography (CT) of the head was performed without intravenous contrast. The dose- length product was 681.00 mGy-cm. Automated exposure control and iterative reconstruction technique w ere employed. COMPARISON: None FINDINGS: Generalized atrophy. There are scattered moderate periventricular and subcortical white mat ter changes, most likely related to small vessel ischemic disease (microangiopathy). Chronic left occ ipital lobe infarction. No midline shift. Paranasal sinuses and mastoids are pneumatized. No depresse d skull fractures. Midline sagittal images demonstrate a normal sclerosis and craniovertebral junctio n. Paranasal sinuses and mastoids are pneumatized. No depressed skull fractures. IMPRESSION: 1. No acute intracranial abnormality. 2: Chronic left occipital lobe infarction. 3: Chronic age-related findings. As per stroke protocol, I called these results to emergency room, discussed with Dr. Linda Juan MD at 10/10/2020 11:50 CDT. Reviewed, dictated and finalized at location A. IMPRESSION: 1. No acute intracranial abnormality. 2: Chronic left occipital lobe infarction. 3: Chronic age-related findings. As per stroke protocol, I called these results to emergency room, discussed wit h Dr. Linda Juan MD at 10/10/2020 11:50 CDT.
--- NOTE | 2020-10-10 11:46 | ECG_ITS ---
Measurements Intervals [place] Rate: 97 P: ME: 0 QRS: 33 QRSD: 162 T: -22 QT: 403 QTc: 514 Interpretive Statements ATRIAL FIBRILLATION VENTRICULAR PREMATURE COMPLEXES RIGHT BUNDLE BRANCH BLOCK MINIMAL Q WAVES- INFERIOR LEADS BASELINE ARTIFACT- II, III, AVR, AVF, V3-V6 ABNORMAL ECG Electronically Signed On 10-10-2020 19:24:24 CDT by Pieter Slater D.O.
[2020-10-10 11:50] LABS: Glucose Point of Care 152 mg/dl (65-105)
[2020-10-10 12:14] LABS: Basophils Absolute Auto 0.1 K/mm3 (0.0-0.1); Basophils Percent Auto 0.5 % (0.2-1.2); Eosinophils Absolute Auto 0.1 K/mm3 (0-0.3); Eosinophils Percent Auto 0.5 % (0-4.4); Hematocrit 40.9 % (42.0-52.0); Hemoglobin 14.2 g/dL (14.0-18.0); Immature Granulocyte Absolute 0.12 K/mm3 (0.00-0.031); Immature Granulocyte Percent A 0.8 % (0-0.5); Lymphocytes Absolute Auto 0.97 K/mm3 (0.9-3.2); Lymphocytes Percent Auto 6.3 % (18.3-44.2); Mean Corpuscular HGB Conc 34.7 g/dl (32-36); Mean Corpuscular Hemoglobin 30.1 pg (26-34); Mean Corpuscular Volume 86.7 fl (80-100); Monocytes Absolute Auto 1.3 K/mm3 (0.1-0.6); Monocytes Percent Auto 8.6 % (2.6-8.5); Neutrophils Absolute Auto 12.9 K/mm3 (1.3-6.7); Neutrophils Percent Auto 83.3 % (45.5-73.1); Platelet Count Result 245 k/mm3 (150-375); Red Blood Count 4.72 M/mm3 (4.6-6.20); Red Cell Distribution Width 15.9 % (11.5-14.5); White Blood Count 15.4 K/mm3 (4.5-10.0)
[2020-10-10 12:26] LABS: INR 1.5; Prothrombin Time 18.9 Seconds (11.1-14.7)
[2020-10-10 12:27] LABS: Partial Thromboplastin Time 37.7 SECONDS (22.3-36.8)
[2020-10-10 12:34] LABS: Anion Gap 13 mmol/L (8-16); Blood Urea Nitrogen 16 mg/dL (9-20); Calcium 8.9 mg/dL (8.4-10.2); Carbon Dioxide 19 mmol/L (22-30); Chloride 109 mmol/L (98-107); Estimated CRCL calculation 46 ml/min; Estimated Glomerular Filt Rate 53; Glucose 140 mg/dL (75-110); Potassium 2.8 mmol/L (3.4-5.0); Sodium 141 mmol/L (137-145)
[2020-10-10 12:44] LABS: Troponin I 0.102 ng/mL (0.000-0.034)
--- NOTE | 2020-10-10 12:57 | ED.NEUROSD ---
HPI - Neuro Symptoms/Deficit General Chief Complaint: Suspected CVA Stated Complaint: code cva Time Seen by Provider: 10/10/20 12:38 Source: family and RN notes reviewed Mode of arrival: EMS Limitations: altered mental status History of Present Illness HPI Narrative: Patient is 79 years old white male brought to the emergency room by his son and an ambulance because of strokelike symptoms. Patient lives alone, stage IV pancreatic cancer, not going through any treatment at this time, comfort measures only, hospice, apparently patient was sitting in his car unable to drive and, somehow called his son and was mumbling on the phone, when his son arrived found him with slurred speech, aphasia and weakness of the right upper extremity called 911. Patient on home oxygen, also on Eliquis. Related Data Home Medications Medication Instructions Recorded Confirmed cholecalciferol (vitamin D3) 50 2,000 unit PO DAILY 02/25/19 03/06/20 mcg (2,000 unit) tablet Allergies Allergy/AdvReac Type Severity Reaction Status Date / Time aspartame Allergy Severe SEIZURE Verified 03/04/20 10:35 Review of Systems Review of Systems: ROS unobtainable: Yes unobtainable due to mental status [facility] Past Medical History Medical History Abnormal results of kidney function studies Acute kidney injury Chronic hyponatremia Colon polyps COPD (chronic obstructive pulmonary disease) Coronary artery disease With history of CA. Status post three-vessel CABG in 2011. Daily consumption of alcohol Dyslipidemia Elevated liver enzymes Essential hypertension Hyperbilirubinemia Hypothyroidism Insomnia Jaundice Left carotid artery occlusion Liver lesion Obstructive jaundice Paroxysmal atrial fibrillation Status post cardioversion in October 2016. 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 Type 2 diabetes mellitus without complications Weight loss Surgical History Surgical History History of coronary artery bypass graft x 3 (~2011) History of inguinal hernia repair History of nasal septoplasty History of umbilical hernia repair Family History Family History Father Carcinoma of colon Acute myocardial infarction Late 30s. Mother Cerebrovascular accident Social History Social History Social History: The patient is and lives in his own apartment in [place] with his cat. 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 He is a former smoker, and smoked as many as 3 to 4 packs of cigarettes per day for several years, and thereafter smoked 1 to 2 packs of cigarettes a day for 20+ years before quitting in 1985. He enjoys going to the [employer], typically 6 times per week, in which he typically will drink 3 beers. He had not been to the [employer] for the past month due to prison in place orders; this week (09/16/19) he has resumed going to the [employer], he typically has lunch there twice a week. He has no history of alcohol withdrawal signs or symptoms. Denies illicit drug use. He designates his brother Jf and his son Diego as his surrogate decision makers and he wishes to be a full code. Smoking packs per day: 4 Smoking cigarettes per day: 80.0 Years smoked: 20 Smoking pack-years: 80.00 Smoking status: Former smoker Tobacco type: cigarettes Second hand tobacco smoke exposure: Yes Smoking end date: 04/17/85 Alcohol intake: former Drinks per week: 6 Substance use: never Substance use type: does not use Other substance usage details: drinks at the [employer] 2-3d a weeks , 2-3 drinks each day Additional living arrangements comments: Son Diego lives in [place], calls every other day. Gender identity (if verbalized by the patient): Male Spiritual care concerns:
--- NOTE | 2020-10-10 16:08 | PC.NURSE ---
Nursing report called to Ava barreto [facility] in [place].
--- NOTE | 2020-10-10 17:34 | PC.NURSE ---
Patient and family updated with ETA of ambulance, [facility] told ED guidance secretary between 1730 and 1800.
== END 2020-10-10 20:47 | disposition hospice, inpatient (51) ==
PROVIDERS: Emergency Medicine; Emergency Provider Emergency Medicine; PCP Family Medicine
DX: I63.9 Cerebral infarction, unspecified (principal); R47.01 Aphasia; G83.21 Monoplegia of upper limb affecting right dominant side; I25.2 Old myocardial infarction; I10 Essential (primary) hypertension; E03.9 Hypothyroidism, unspecified; E11.9 Type 2 diabetes mellitus without complications; J44.9 Chronic obstructive pulmonary disease, unspecified
CPT/HCPCS: 36415; 70450; 71045; 80048; 82948; 84484; 85025; 85610; 85730; 93005; 99285